=== PATIENT | female | born 1935 | race Caucasian/White ===

== ENCOUNTER 2017-10-10 19:59 | Inpatient (IN) | payer MEDICARE ==
[2017-10-10] MEDS ORDERED: Sodium Chloride 0.9% 1,000 ML IV ONE (20:19)
[2017-10-10 20:36] LABS: MEAN PLATELET VOLUME 8.5 fl
[2017-10-10 20:39] LABS: HEMATOCRIT 40.8 % (41.0-60); HEMOGLOBIN 13.6 gm/dL (12-16); MANUAL DIFF REQUIRED? YES; MEAN CELL VOLUME 93.4 fl (81-100); MEAN CORPUSCULAR HEMOGLOBIN 31.1 pg (27.0-31.0); MEAN CORPUSCULAR HGB CONC 33.3 pg (28.0-36.0); MONOCYTE ABSOLUTE 0.7 Th/cmm (0.3-1.0); NEUTROPHILE ABSOLUTE 13.7 Th/cmm (1.8-8.0); PLATELET COUNT 319 Th/cmm (150-400); RED BLOOD COUNT 4.37 Mil/cmm (3.80-5.20); RED CELL DISTRIBUTION WIDTH 13.2 % (11.5-20.0)
[2017-10-10 20:41] LABS: WHITE BLOOD COUNT 15.2 Th/cmm (4.8-10.8)
[2017-10-10 20:49] LABS: URINE MICROSCOPIC INDICATED? YES; URINE SOURCE CATH
[2017-10-10 20:50] LABS: URINE BILIRUBIN SMALL (NEGATIVE); URINE BLOOD MODERATE (NEGATIVE); URINE GLUCOSE (UA) NEGATIVE (NEGATIVE); URINE KETONE NEGATIVE (NEGATIVE); URINE LEUKOCYTE ESTERASE NEGATIVE (NEGATIVE); URINE NITRATE POSITIVE (NEGATIVE); URINE PROTEIN 100 mg/dL (NEGATIVE)
[2017-10-10 20:55] LABS: URINE CLARITY CLOUDY (CLEAR); URINE COLOR YELLOW
[2017-10-10 20:58] LABS: ALB/GLOB RATIO 1.1 (1.0-1.8); ALBUMIN 3.7 gm/dL (3.7-5.3); ALKALINE PHOSPHATASE 84 U/L (34-104); ANION GAP 12.4 (7.0-16.0); BILIRUBIN,TOTAL 0.6 mg/dL (0.3-1.0); BUN - UREA NITROGEN 25 mg/dL (7-25); CALCIUM SERUM 9.8 mg/dL (8.6-10.3); CHLORIDE 107 mEq/L (98-107); CREATININE - SERUM 0.8 mg/dL (0.6-1.2); GLUCOSE 183 mg/dL (70-105); POTASSIUM SERUM 3.4 mEq/L (3.5-5.1); SGOT 15 U/L (13-39); SGPT/ALT 7 U/L (7-52); SODIUM SERUM 143 mEq/L (136-145); TOTAL PROTEIN,SERUM 7.1 gm/dL (6.0-8.3)
[2017-10-10 20:58] LABS: URINE BACTERIA MANY /hpf (NONE SEEN); URINE EPITHELIAL CELLS MODERATE /lpf (FEW); URINE RBC 25-50 /hpf (0-5)
[2017-10-10 21:10] LABS: BAND NEUTROPHILE 5 % (0-10); LYMPHOCYTE 10 % (20-50); MONOCYTE 2 % (2-10); NEUTROPHILS 83 % (40-80); TOTAL CELLS COUNTED 100
[2017-10-10] MEDS ORDERED: cefTRIAXone 1 GM in Sodium Chloride 0.9% 50 ML IV ONE (21:10)
--- NOTE | 2017-10-10 21:35 | ED Physician Chart ---
ED Chief Complaint/HPI - Patient Information Date Seen:: 10/10/17 Time Seen:: 20:30 Chief Complaint:: Generalized weakness History of Present Illness:: 82 yo female was brought from [facility] to ER for evaluation of poor oral intake for 1 day. Patient is demented and confused. Allergies:: Allergies Allergy/AdvReac Type Severity Reaction Status Date / Time Penicillins [PCN] Allergy Verified 10/10/17 20:10 Vitals:: Vital Signs - 8 hr 10/10/17 10/10/17 20:00 21:11 Temp 98.8 F HR 110 82 RR 18 16 BP 96/75 103/66 O2 Sat % 94 94 ED Review of Systems - Review of Systems General/Constitutional: No fever, Weakness Skin: No skin lesions Head: No headache Eyes: No pain ENT: No nasal drainage Neck: No neck pain Cardio Vascular: No chest pain Pulmonary: No SOB GI: No nausea, No vomiting Musculoskeletal: No bone or joint pain Psychiatric: Prior psych history Neurological: No focal symptoms ED Past Medical History - Past Medical History Past Medical History: Dementia (Alzheimer's) Social History: Non Smoker, No Alcohol, No Drug Use Surgical History: None Psychiatricy History: Other (Anxiety) Family Medical History - Family Member Mother History Unknown: Yes ED Physical Exam - Physical Examination General/Constitutional: Awake Head: Atraumatic Eyes: PERRL Skin: No skin lesions ENMT: Nasal exam nl Neck: No nuchal rigidity Respiratory: No Wheeze/Rhonchi/Rales Cardio Vascular: RRR, No murmur, gallop, rubs, NL S1 S2 GI: No tenderness/rebounding/guarding Extremities: No edema Other Neuro/Psych comments:: Confused, not following command ED Labs/Radiology/EKG Results - Lab Results Results: Laboratory Tests 10/10/17 10/10/17 10/10/17 20:15 20:15 20:15 WBC 15.2 H RBC 4.37 Hgb 13.6 Hct 40.8 L MCV 93.4 MCH 31.1 H MCHC Differential 33.3 RDW 13.2 Plt Count 319 MPV 8.5 Band Neutrophils % 5 Neutrophils (Manual) 83 H Lymphocytes 10 L Monocytes 2 Sodium 143 Potassium 3.4 L Chloride 107 Carbon Dioxide 27.0 Anion Gap 12.4 BUN 25 Creatinine 0.8 Est GFR ( Amer) TNP Est GFR (Non-Af Amer) TNP BUN/Creatinine Ratio 31.3 Glucose 183 H Calcium 9.8 Total Bilirubin 0.6 AST 15 ALT 7 Alkaline Phosphatase 84 Troponin I < 0.01 L Total Protein 7.1 Albumin 3.7 Globulin 3.4 Albumin/Globulin Ratio 1.1 Urine Source Urine Color Urine Clarity Urine pH Ur Specific [place] Urine Protein Urine Glucose (UA) Urine Ketones Urine Blood Urine Nitrate Urine Bilirubin Urine Urobilinogen Ur Leukocyte Esterase Urine RBC Urine WBC Ur Epithelial Cells Urine Bacteria 10/10/17 20:45 WBC RBC Hgb Hct MCV MCH MCHC Differential RDW Plt Count MPV Band Neutrophils % Neutrophils (Manual) Lymphocytes Monocytes Sodium Potassium Chloride Carbon Dioxide Anion Gap BUN Creatinine Est GFR ( Amer) Est GFR (Non-Af Amer) BUN/Creatinine Ratio Glucose Calcium Total Bilirubin AST ALT Alkaline Phosphatase Troponin I Total Protein Albumin Globulin Albumin/Globulin Ratio Urine Source CATH Urine Color YELLOW Urine Clarity CLOUDY H Urine pH 6.0 Ur Specific [place] >= 1.030 Urine Protein 100 H Urine Glucose (UA) NEGATIVE Urine Ketones NEGATIVE Urine Blood MODERATE H Urine Nitrate POSITIVE H Urine Bilirubin SMALL H Urine Urobilinogen 2.0 Ur Leukocyte Esterase NEGATIVE Urine RBC 25-50 H Urine WBC 2-5 Ur Epithelial Cells MODERATE Urine Bacteria MANY H - Radiology Results Results: CXR: no focal consolidation - EKG Interpretations EKG Time:: 20:46 Rate & Rhythm: 94 bpm, sinus rhythm [place]: Normal P axis Comments:: Abnormal R-wave progression, abnormal EKG ED Assessment - Assessment General Assessment: Sepsis UTI Dehydration Alzheimer's dementia Assessment/Comments:: CBC, CMP, Trop I, BNP, UA CXR, EKG NS 1L IV bolus Rocephin KCl 40mEq Admit to med surg ED Septic Shock - . Is Septic Shock (SBP<90, OR Lactate>4 mmol\L) present?: No - <6hrs of presentation: Vital Signs: Vital Signs - 8 hr 10/10/17 10/10/17 20:00 21:11 Temp 98.8 F HR 110 82 RR 18 16 BP 96/75 103/66 O2 Sat % 94 94 ED Reassessment (Disposition) - Reassessment Reassessment Condition:: Improved - Patient Disposition Discharge/Transfer:: Acute Care w/in this hosp Admitting Medical Physician:: Richie Jorge
[2017-10-10] MEDS ORDERED: Potassium Chloride 20 mEq ER Tab PO ONE ×2 (21:50→21:52)
[2017-10-11] MEDS: D5-0.45NS 1,000 ML IV SCH ×2 (01:07→14:11)
[2017-10-11 06:05] LABS: % BASOPHILS 0.1 % (0.0-2.0); % EOSINOPHILS 0.2 % (0.0-5.0); % LYMPHOCYTES 7.3 % (20.0-50.0); % MONOCYTES 6.9 % (2.0-10.0); % NEUTROPHILS 85.5 % (40.0-80.0); HEMOGLOBIN 11.3 gm/dL (12-16); LYMPHOCYTE ABSOLUTE 0.9 Th/cmm (1.5-3.0); MEAN CELL VOLUME 93.2 fl (81-100); MEAN CORPUSCULAR HEMOGLOBIN 31.5 pg (27.0-31.0); MEAN CORPUSCULAR HGB CONC 33.8 pg (28.0-36.0); MEAN PLATELET VOLUME 8.3 fl; MONOCYTE ABSOLUTE 0.9 Th/cmm (0.3-1.0); NEUTROPHILE ABSOLUTE 10.6 Th/cmm (1.8-8.0); PLATELET COUNT 278 Th/cmm (150-400); RED CELL DISTRIBUTION WIDTH 12.8 % (11.5-20.0)
[2017-10-11 06:25] LABS: HEMATOCRIT 33.6 % (41.0-60); WHITE BLOOD COUNT 12.4 Th/cmm (4.8-10.8)
[2017-10-11 06:45] LABS: ALB/GLOB RATIO 1.1 (1.0-1.8); ALBUMIN 3.1 gm/dL (3.7-5.3); ALKALINE PHOSPHATASE 73 U/L (34-104); ANION GAP 9.1 (7.0-16.0); BILIRUBIN,TOTAL 0.4 mg/dL (0.3-1.0); BUN - UREA NITROGEN 19 mg/dL (7-25); CALCIUM SERUM 8.8 mg/dL (8.6-10.3); CARBON DIOXIDE 25.4 mEq/L (21.0-31.0); CHLORIDE 113 mEq/L (98-107); CREATININE - SERUM 0.8 mg/dL (0.6-1.2); GLUCOSE 181 mg/dL (70-105); POTASSIUM SERUM 3.5 mEq/L (3.5-5.1); SGOT 14 U/L (13-39); SGPT/ALT 7 U/L (7-52); SODIUM SERUM 144 mEq/L (136-145); TOTAL PROTEIN,SERUM 5.9 gm/dL (6.0-8.3)
--- NOTE | 2017-10-11 10:10 | Consultation ---
Consult Note - Consult Note Service Date: 10/11/17 Referring Physician: Richie Jorge Consult Note: PHYSICIAN Consultation Note: Date of Admission: 10/10/17 Purpose of Consultation: Chief Complaint: Patient SHALOM LAW was admitted to location Medical/Surgical Unit I with UTI ,SEPSIS. History of Present Illness:82 year female with a past medical history of severe dementia, anxiety disorder brought from nursing facility for evaluation. Patient has generalized weakness. She is well poor historian and unable to give any history at all. On initial evaluation, patient's temperature was 98.8 F and WBC count was 13,200. Urinalysis showed a hematuria and bacteriuria. Rocephin was started. ID consult was called for antibiotic management. Past Medical History: Allergies Allergy/AdvReac Type Severity Reaction Status Date / Time Penicillins [PCN] Allergy Verified 10/10/17 20:10 Vital Signs Temp 98.3 F 10/11/17 07:46 Pulse 68 10/11/17 07:46 Resp 17 10/11/17 08:19 BP 99/45 10/11/17 07:46 Pulse Ox 91 10/11/17 07:46 Intake & Output 10/10/17 10/11/17 10/11/17 18:59 06:59 18:59 Intake Total 2100 Output Total 50 Balance 2049 Weight (lbs) 47.627 kg Intake: Intake, IV Amount 2100 Sodium Chloride 0.9% 1, 1000 000 ml @ Wide Open IV . Q0M ONE Rx#:[id number] cefTRIAXone 1 gm In 50 Sodium Chloride 0.9% 50 ml @ 100 mls/hr IV X1 ONE Rx#:[id number] Output: Urine 50 Other: Weight Source Estimated Laboratory Results - last 24 hr 10/10/17 10/10/17 10/10/17 20:15 20:15 20:15 WBC 15.2 H RBC 4.37 Hgb 13.6 Hct 40.8 L MCV 93.4 MCH 31.1 H MCHC Differential 33.3 RDW 13.2 Plt Count 319 MPV 8.5 Neutrophils % Band Neutrophils % 5 Lymphocytes % Monocytes % Eosinophils % Basophils % Neutrophils (Manual) 83 H Lymphocytes 10 L Monocytes 2 Sodium 143 Potassium 3.4 L Chloride 107 Carbon Dioxide 27.0 Anion Gap 12.4 BUN 25 Creatinine 0.8 Est GFR ( Amer) TNP Est GFR (Non-Af Amer) TNP BUN/Creatinine Ratio 31.3 Glucose 183 H Whole Bld Lactic Acid Calcium 9.8 Total Bilirubin 0.6 AST 15 ALT 7 Alkaline Phosphatase 84 Troponin I < 0.01 L B-Natriuretic Peptide Total Protein 7.1 Albumin 3.7 Globulin 3.4 Albumin/Globulin Ratio 1.1 Urine Source Urine Color Urine Clarity Urine pH Ur Specific [place] Urine Protein Urine Glucose (UA) Urine Ketones Urine Blood Urine Nitrate Urine Bilirubin Urine Urobilinogen Ur Leukocyte Esterase Urine RBC Urine WBC Ur Epithelial Cells Urine Bacteria 10/10/17 10/10/17 10/10/17 20:15 20:45 21:10 WBC RBC Hgb Hct MCV MCH MCHC Differential RDW Plt Count MPV Neutrophils % Band Neutrophils % Lymphocytes % Monocytes % Eosinophils % Basophils % Neutrophils (Manual) Lymphocytes Monocytes Sodium Potassium Chloride Carbon Dioxide Anion Gap BUN Creatinine Est GFR ( Amer) Est GFR (Non-Af Amer) BUN/Creatinine Ratio Glucose Whole Bld Lactic Acid 1.95 Calcium Total Bilirubin AST ALT Alkaline Phosphatase Troponin I B-Natriuretic Peptide 56.4 Total Protein Albumin Globulin Albumin/Globulin Ratio Urine Source CATH Urine Color YELLOW Urine Clarity CLOUDY H Urine pH 6.0 Ur Specific [place] >= 1.030 Urine Protein 100 H Urine Glucose (UA) NEGATIVE Urine Ketones NEGATIVE Urine Blood MODERATE H Urine Nitrate POSITIVE H Urine Bilirubin SMALL H Urine Urobilinogen 2.0 Ur Leukocyte Esterase NEGATIVE Urine RBC 25-50 H Urine WBC 2-5 Ur Epithelial Cells MODERATE Urine Bacteria MANY H 10/11/17 10/11/17 05:05 05:05 WBC 12.4 H RBC 3.60 L Hgb 11.3 L Hct 33.6 L D MCV 93.2 MCH 31.5 H MCHC Differential 33.8 RDW 12.8 Plt Count 278 MPV 8.3 Neutrophils % 85.5 H Band Neutrophils % Lymphocytes % 7.3 L Monocytes % 6.9 Eosinophils % 0.2 Basophils % 0.1 Neutrophils (Manual) Lymphocytes Monocytes Sodium 144 Potassium 3.5 Chloride 113 H Carbon Dioxide 25.4 Anion Gap 9.1 BUN 19 Creatinine 0.8 Est GFR ( Amer) TNP Est GFR (Non-Af Amer) TNP BUN/Creatinine Ratio 23.8 Glucose 181 H Whole Bld Lactic Acid Calcium 8.8 Total Bilirubin 0.4 AST 14 ALT 7 Alkaline Phosphatase 73 Troponin I B-Natriuretic Peptide Total Protein 5.9 L Albumin 3.1 L Globulin 2.8 Albumin/Globulin Ratio 1.1 Urine Source Urine Color Urine Clarity Urine pH Ur Specific [place] Urine Protein Urine Glucose (UA) Urine Ketones Urine Blood Urine Nitrate Urine Bilirubin Urine Urobilinogen Ur Leukocyte Esterase Urine RBC Urine WBC Ur Epithelial Cells Urine Bacteria Home Medication Medication Instructions Recorded Type Acetaminophen [Tylenol] 650 mg PO Q4HR PRN 10/10/17 History Ascorbic Acid [Vitamin C] 500 mg PO DAILY 10/10/17 History Donepezil HCl [Aricept] 10 mg PO HS 10/10/17 History Memantine HCl [Namenda Xr] 28 mg PO DAILY 10/10/17 History Multivitamin with Minerals 1 tab PO DAILY 10/10/17 History [Multivitamins with Minerals] Current Medications Generic Name Dose Route Start Last Admin Trade Name Freq PRN Reason Stop Dose Admin Ceftriaxone Sodium 1 gm/ 50 mls @ 100 mls/hr 10/11/17 21:00 Sodium Chloride IV 12/10/17 20:59 Q24HR RADHA Dextrose/Sodium Chloride 1,000 mls @ 75 mls/hr 10/10/17 23:00 10/11/17 01:07 D5-0.45ns IV 12/09/17 22:59 75 mls/hr .[id number] RADHA Administration Review of Systems: A 12 point ROS was reviewed with the pertinent positive and negatives noted in the HPI. Social History Smoking Status Unknown if ever smoked Family Medical History Not available. Physical Exam: General: Comfortable not in acute distress head is normocephalic, atraumatic. Oral cavity: Moist for greater HEENT: Head: Normocephalic. Atraumatic. Oral cavity: Moist, pink tongue. Eyes : Pallor and icterus. Pupil PERRLA EOMI. Neck: Upper, no JVD. No use of accessory muscles. Cardio: 1 S2 within normal with regular rhythm no murmur or gallop Respiratory: Patient was sound no crackles no wheezing. Abdominal: Soft, nontender nondistended bowel sounds present Genital/Urinary: No sinus no clubbing no edema Extremities: No sinus no clubbing no edema. Neurological: Alert. Unable to communicate. Assessment: 1. Leukocytosis. 2. UTI. 3. Severe dementia Plan: Renal ul Dr. GREENBERG, for involving me taking care of this patient trasound. Continue Rocephin. Thank you, Dr. Jorge, for involving me in taking care of this patient Signed, Timmy Gleason M.D. [id number]
--- NOTE | 2017-10-11 10:36 | Diagnostic Imaging Report ---
Portable chest x-ray HISTORY: Cough Heart size difficult to assess with portable technique, a poor inspiration, and patient rotation. Scoliosis of the thoracic spine convexity to the right. No focal pulmonary processes. IMPRESSION: 1. No acute focal pulmonary processes
--- NOTE | 2017-10-11 11:27 | History & Physical ---
ADMIT DATE: PATIENT IDENTIFICATION: An 82-year-old. CHIEF COMPLAINT: None. HISTORY SOURCE: Reviewing the chart, talking to the Emergency Room MD. HISTORY OF PRESENT ILLNESS: An 82-year-old resident of a senior living, has advanced Alzheimer dementia with history of anxiety and depression, brought into the Emergency Room after the patient was noted to have poor p.o. intake and decreased urine output. The patient was worked up in the Emergency Room, noted to have a urinary tract infection associated with leukocytosis. The patient was admitted to the hospital for further treatment. PAST MEDICAL HISTORY: Remarkable for: 1. Alzheimer dementia. 2. DJD. 3. Osteoporosis. ALLERGIES: THE PATIENT IS ALLERGIC TO PENICILLIN. SOCIAL HISTORY: The patient lives in a senior living. No smoking cigarette, alcohol, or drug use. FAMILY HISTORY: Unavailable. REVIEW OF SYSTEMS: Unable to get meaningful history from the patient. PHYSICAL EXAMINATION: GENERAL: The patient is alert, awake, does not follow any command. VITAL SIGNS: Temperature 98.3, pulse 68, respiratory rate 18, blood pressure 100/45. HEENT: Normocephalic, atraumatic. Extraocular muscles are intact. Tongue was pink and dry. Multiple absent teeth noted. NECK: Supple. No JVD. No hepatojugular reflux, thyromegaly, or carotid bruit. HEART: Both heart sounds are regular. CHEST AND LUNGS: Equal in expansion with no expiratory wheezing. ABDOMEN: Soft. No guarding, no rigidity. Bowel sounds are present. No palpable mass. EXTREMITIES: No edema, no cyanosis. Bilateral footdrop noted with wristdrop ____ +1. No calf tenderness. NEUROLOGIC: Alert, awake, unable to communicate. AVAILABLE LABORATORY DATA: Remarkable for white count of 15.2, hemoglobin 13.6, platelet count 319, 83% neutrophil, potassium 3.4, BUN and creatinine 25 and 0.8, glucose of 183. Liver functions are normal. Troponin less than 0.01. Cloudy appearing urine, 100+ protein, moderate blood, positive nitrite, small bilirubin, 25-50 wbc's, many bacteria were noted. Chest x-ray was done, which was unremarkable for any infiltrate. CLINICAL IMPRESSION: 1. Complicated urinary tract infections with leukocytosis. 2. Alzheimer dementia. 3. Degenerative joint disease. 4. Osteoporosis. 5. Poor p.o. intake. PLAN: 1. Admit this patient to [facility] floor. 2. IV fluid. 3. IV antibiotics. 4. Normal ultrasound. 5. Infectious Disease consultation. 6. General nursing care. 7. Appropriate home medicine reconciliation. 8. Follow lab. 9. Follow consult recommendation. 10. Care plan reviewed and discussed. JOB# [id number]
[2017-10-11] MEDS ORDERED: VTE Chemical Prophylaxis Screen/Admission MC PRN (11:58)
[2017-10-11] MEDS ORDERED: Probiotic Screen MC PRN (12:07)
[2017-10-11] MEDS: Multivitamin w/ Minerals Tab PO SCH (13:10)
[2017-10-11] MEDS: Lactobacillus Rhamnosus GG 15 Billion CFU CAP.SPRINK PO SCH (13:10)
--- NOTE | 2017-10-11 14:19 | Diagnostic Imaging Report ---
Renal ultrasound HISTORY: Pain, pyelonephritis The right kidney is somewhat increased in size (13.0 x 5.1 x 4.9 cm). 2 sonolucent lesions consistent with cysts are seen in the upper pole. The largest measures approximate 4.7 cm. No hydronephrosis. The left kidney is slightly decreased in size (8.0 x 4.0 x 3.9 cm). No focal lesions. No hydronephrosis. The urinary bladder cannot be evaluated due to lack of distention and presence of a Ly catheter. IMPRESSION: 1. Slightly increased size of the right kidney associated with 2 cysts. No hydronephrosis. 2. Slightly diminished size the left kidney. No focal lesions or hydronephrosis.
[2017-10-11 17:49] LABS: A1C % 5.6 % (4.0-6.0)
[2017-10-11] MEDS ORDERED: cefTRIAXone 1 GM in Sodium Chloride 0.9% 50 ML IV SCH (21:00)
[2017-10-12 07:17] LABS: % BASOPHILS 0.4 % (0.0-2.0); % EOSINOPHILS 0.6 % (0.0-5.0); % LYMPHOCYTES 10.2 % (20.0-50.0); % MONOCYTES 6.9 % (2.0-10.0); % NEUTROPHILS 81.9 % (40.0-80.0); EOSINOPHILE ABSOLUTE 0.1 Th/cmm (0.1-0.4); HEMATOCRIT 31.8 % (41.0-60); HEMOGLOBIN 11.1 gm/dL (12-16); LYMPHOCYTE ABSOLUTE 1.1 Th/cmm (1.5-3.0); MEAN CORPUSCULAR HEMOGLOBIN 32.1 pg (27.0-31.0); MEAN CORPUSCULAR HGB CONC 34.9 pg (28.0-36.0); MEAN PLATELET VOLUME 8.7 fl; MONOCYTE ABSOLUTE 0.8 Th/cmm (0.3-1.0); NEUTROPHILE ABSOLUTE 9.1 Th/cmm (1.8-8.0); PLATELET COUNT 268 Th/cmm (150-400); RED BLOOD COUNT 3.45 Mil/cmm (3.80-5.20); RED CELL DISTRIBUTION WIDTH 12.6 % (11.5-20.0); WHITE BLOOD COUNT 11.1 Th/cmm (4.8-10.8)
[2017-10-12 07:33] LABS: ALB/GLOB RATIO 1.1 (1.0-1.8); ALKALINE PHOSPHATASE 68 U/L (34-104); ANION GAP 10.2 (7.0-16.0); BILIRUBIN,TOTAL 0.5 mg/dL (0.3-1.0); BUN - UREA NITROGEN 8 mg/dL (7-25); CALCIUM SERUM 8.4 mg/dL (8.6-10.3); CARBON DIOXIDE 26.9 mEq/L (21.0-31.0); CHLORIDE 107 mEq/L (98-107); CREATININE - SERUM 0.7 mg/dL (0.6-1.2); GLUCOSE 115 mg/dL (70-105); MAGNESIUM 1.9 mg/dL (1.9-2.7); POTASSIUM SERUM 3.1 mEq/L (3.5-5.1); SGOT 13 U/L (13-39); SGPT/ALT 6 U/L (7-52); SODIUM SERUM 141 mEq/L (136-145); TOTAL PROTEIN,SERUM 5.8 gm/dL (6.0-8.3)
[2017-10-12] MEDS: Lactobacillus Rhamnosus GG 15 Billion CFU CAP.SPRINK PO SCH (09:57)
[2017-10-12] MEDS: Multivitamin w/ Minerals Tab PO SCH (09:57)
--- NOTE | 2017-10-12 12:16 | Diagnostic Imaging Report ---
CHEST X-RAY: AP view INDICATION: Cough COMPARISON: 10/10/2017 FINDINGS: Developing right basal infiltrate is noted with small right effusion. Heart size is at the upper limits of normal. Gas distended stomach is noted. IMPRESSION: Developing right basal infiltrate with small right effusion. Follow up recommended.
[2017-10-12] MEDS ORDERED: KCL 20mEq/100mL Premix 20 MEQ/100 ML PIGGYBACK IV ONE (18:34)
[2017-10-12] MEDS: D5-0.45NS 1,000 ML IV SCH (19:42)
--- NOTE | 2017-10-13 01:21 | Infectious Disease Prog Note ---
Infectious Disease Subjective - Review of Systems Service Date: 10/12/17 Subjective: No change, no fever. Infectious Disease Objective - Results Result Diagrams: 10/12/17 05:35 10/12/17 05:35 Recent Labs: Laboratory Last Values WBC 11.1 Th/cmm (4.8-10.8) H 10/12/17 05:35 RBC 3.45 Mil/cmm (3.80-5.20) L 10/12/17 05:35 Hgb 11.1 gm/dL (12-16) L 10/12/17 05:35 Hct 31.8 % (41.0-60) L 10/12/17 05:35 MCV 92.0 fl (81-100) 10/12/17 05:35 MCH 32.1 pg (27.0-31.0) H 10/12/17 05:35 MCHC Differential 34.9 pg (28.0-36.0) 10/12/17 05:35 RDW 12.6 % (11.5-20.0) 10/12/17 05:35 Plt Count 268 Th/cmm (150-400) 10/12/17 05:35 MPV 8.7 fl 10/12/17 05:35 Neutrophils % 81.9 % (40.0-80.0) H 10/12/17 05:35 Band Neutrophils % 5 % (0-10) 10/10/17 20:15 Lymphocytes % 10.2 % (20.0-50.0) L 10/12/17 05:35 Monocytes % 6.9 % (2.0-10.0) 10/12/17 05:35 Eosinophils % 0.6 % (0.0-5.0) 10/12/17 05:35 Basophils % 0.4 % (0.0-2.0) 10/12/17 05:35 Neutrophils (Manual) 83 % (40-80) H 10/10/17 20:15 Lymphocytes 10 % (20-50) L 10/10/17 20:15 Monocytes 2 % (2-10) 10/10/17 20:15 Sodium 141 mEq/L (136-145) 10/12/17 05:35 Potassium 3.1 mEq/L (3.5-5.1) L 10/12/17 05:35 Chloride 107 mEq/L (98-107) 10/12/17 05:35 Carbon Dioxide 26.9 mEq/L (21.0-31.0) 10/12/17 05:35 Anion Gap 10.2 (7.0-16.0) 10/12/17 05:35 BUN 8 mg/dL (7-25) 10/12/17 05:35 Creatinine 0.7 mg/dL (0.6-1.2) 10/12/17 05:35 Est GFR ( Amer) TNP 10/12/17 05:35 Est GFR (Non-Af Amer) TNP 10/12/17 05:35 BUN/Creatinine Ratio 11.4 10/12/17 05:35 Glucose 115 mg/dL (70-105) H 10/12/17 05:35 Hemoglobin A1c % 5.6 % (4.0-6.0) 10/10/17 20:20 Whole Bld Lactic Acid 1.95 mmol/L (0.60-1.99) 10/10/17 21:10 Calcium 8.4 mg/dL (8.6-10.3) L 10/12/17 05:35 Magnesium 1.9 mg/dL (1.9-2.7) 10/12/17 05:35 Total Bilirubin 0.5 mg/dL (0.3-1.0) 10/12/17 05:35 AST 13 U/L (13-39) 10/12/17 05:35 ALT 6 U/L (7-52) L 10/12/17 05:35 Alkaline Phosphatase 68 U/L (34-104) 10/12/17 05:35 Troponin I < 0.01 ng/mL (0.01-0.05) L 10/10/17 20:15 B-Natriuretic Peptide 56.4 pg/mL (5.0-100.0) 10/10/17 20:15 Total Protein 5.8 gm/dL (6.0-8.3) L 10/12/17 05:35 Albumin 3.0 gm/dL (3.7-5.3) L 10/12/17 05:35 Globulin 2.8 gm/dL 10/12/17 05:35 Albumin/Globulin Ratio 1.1 (1.0-1.8) 10/12/17 05:35 Urine Source CATH 10/10/17 20:45 Urine Color YELLOW 10/10/17 20:45 Urine Clarity CLOUDY (CLEAR) H 10/10/17 20:45 Urine pH 6.0 (4.6 - 8.0) 10/10/17 20:45 Ur Specific [place] >= 1.030 (1.005-1.030) 10/10/17 20:45 Urine Protein 100 mg/dL (NEGATIVE) H 10/10/17 20:45 Urine Glucose (UA) NEGATIVE mg/dL (NEGATIVE) 10/10/17 20:45 Urine Ketones NEGATIVE mg/dL (NEGATIVE) 10/10/17 20:45 Urine Blood MODERATE (NEGATIVE) H 10/10/17 20:45 Urine Nitrate POSITIVE (NEGATIVE) H 10/10/17 20:45 Urine Bilirubin SMALL (NEGATIVE) H 10/10/17 20:45 Urine Urobilinogen 2.0 E.U./dL (0.2 - 1.0) 10/10/17 20:45 Ur Leukocyte Esterase NEGATIVE (NEGATIVE) 10/10/17 20:45 Urine RBC 25-50 /hpf (0-5) H 10/10/17 20:45 Urine WBC 2-5 /hpf (0-5) 10/10/17 20:45 Ur Epithelial Cells MODERATE /lpf (FEW) 10/10/17 20:45 Urine Bacteria MANY /hpf (NONE SEEN) H 10/10/17 20:45 - Physical Exam Vitals and I&O: Vital Signs Temp 97.2 F 10/13/17 00:00 Pulse 50 10/13/17 00:00 Resp 18 10/13/17 00:00 BP 137/57 10/13/17 00:00 Pulse Ox 92 10/13/17 00:00 Intake & Output 10/12/17 10/12/17 10/13/17 06:59 18:59 06:59 Intake Total 1000 0 Output Total 201 500 Balance 799 -500 Weight (lbs) 52.027 kg 51.71 kg Intake: Intake, IV Amount 1000 D5-0.45NS 1,000 ml @ 75 1000 mls/hr IV .[id number] [facility] Rx #:[id number] Oral 0 Output: Urine 200 500 Stool 1 Other: # Bowel Movements 2 Weight Source Bedscale Bedscale Active Medications: Current Medications Acetaminophen (Tylenol) 650 mg PO Q4H PRN PRN Reason: Pain or Fever >101 Stop: 12/10/17 10:37 Ascorbic Acid (Vitamin C) 500 mg PO DAILY RADHA Stop: 12/10/17 13:59 Last Admin: 10/12/17 09:57 Dose: 500 mg Donepezil HCl (Aricept) 10 mg PO HS RADHA Stop: 12/10/17 20:59 Last Admin: 10/12/17 22:22 Dose: Not Given Heparin Sodium (Porcine) (Heparin) 5,000 units SUBQ Q12HR RADHA Stop: 12/10/17 20:59 Last Admin: 10/12/17 21:31 Dose: 5,000 units Dextrose/Sodium Chloride (D5-0.45ns) 1,000 mls @ 75 mls/hr IV .[id number] RADHA Stop: 12/09/17 22:59 Last Admin: 10/12/17 19:42 Dose: 75 mls/hr Gentamicin Sulfate 80 mg/ (Sodium Chloride) 102 mls @ 100 mls/hr IV Q24HR@0900 RADHA Stop: 12/10/17 13:59 Last Admin: 10/12/17 09:56 Dose: 100 mls/hr Ceftriaxone Sodium 1 gm/ (Dextrose) 50 mls @ 100 mls/hr IV Q24H RADHA Stop: 12/11/17 20:59 Last Admin: 10/12/17 21:31 Dose: 100 mls/hr Lactobacillus Rhamnosus (Culturelle 15b) 1 each PO DAILY RADHA Stop: 12/10/17 13:59 Last Admin: 10/12/17 09:57 Dose: 1 each Memantine (Namenda) 10 mg PO DAILY RADHA Stop: 12/10/17 13:59 Last Admin: 10/12/17 09:57 Dose: 10 mg Miscellaneous (Gentamicin Iv Per Pharmacy) 1 ea MC PRN RADHA Stop: 12/10/17 10:44 Miscellaneous (Vte Chemical Prophylaxis Screen/ Admission) 1 ea PRN PRN PRN Reason: PROTOCOL Stop: 12/10/17 11:57 Miscellaneous (Probiotic Screen) 1 ea PRN PRN PRN Reason: PROTOCOL Stop: 12/10/17 12:06 General: no acute distress, well developed, well nourished HEENT: atraumatic, normocephalic, PERRLA, EOMI Neck: supple, no thyromegaly, no lymphadenopathy Cardiovascular: S1S2, regular Lungs: clear to auscultation bilaterally, clear to percussion Abdomen: soft, bowel sounds, no tender, no distended Extremities: no cyanosis, no clubbing, no edema Neurological: awake, alert, oriented Skin: intact Infectious Disease Assmt/Plan - Assessment Assessment: 1. Leukocytosis. 2. UTI. 3. Severe dementia - Plan Plan: CPM. Nutritional Asmnt/Malnutr-PDOC - Dietary Evaluation Malnutrition Findings (Please click <Entered> for more info): Nutritional Asmnt/Malnutrition Start: 10/11/17 13: 56 Text: Status: Complete Freq: Protocol: Document 10/11/17 13:56 SWETHA (Rec: 10/11/17 14:14 [email or web address] [id number]) Nutritional Asmnt/Malnutrition Patient General Information Nutritional Screening High Risk Diagnosis UTi, Sepsis Pertinent Medical Hx/Surgical Hx dementia, anxiety Subjective Information Pt seen sleeping at first attempt of visit, taking ultrasaound at second attempt of visit. Spoke with CREDIT ADVISOR, pt had half of cream of wheat and healthy shake at breakfast, refused to eat at lunch. Current Diet Order/ Nutrition Support pureed, honey thickened liquids Pertinent Medications vit C, D5-045ns, culturelle Pertinent Labs 10/11 cl 113, glucose 181 6/5 K 3.4, glucose 183 Nutritional Hx/Data Height 1.52 m Height (Calculated Centimeters) 152.4 Current Weight (lbs) 47.627 kg Weight (Calculated Kilograms) 47.6 Weight (Calculated Grams) 55710.2 [place] Body Weight 100 % [place] Body Weight 105 Body Mass Index (BMI) 20.5 Weight Status Approriate GI Symptoms GI Symptoms None Last BM not indicated Difficult in: None Usual diet at home poor PO intake x 1 day before admitted Skin Integrity/Comment: 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 Problem Problem altered nutrition related labs Etiology endocrine dysfunction Signs/Symptoms: glucose 181-183 1. Problem Problem inadequate food intake Etiology possible poor appetite or mental status Signs/Symptoms: PO intake <25% Malnutrition Alert Is there a minimum of two criteria No selected? Query Text:Check all the applicable criteria. A minimum of two criteria are recommended for diagnosis of either severe or non-severe malnutrition. Malnutrition Related to Morbid Obesity Malnutrition related to morbid obesity No Intervention/Recommendation Comments 1. Continue with current diet as ordered. Encourage pt to eat and assist pt with all meals. MD to consider appetite stimulant. 2. Monitor glucose, PO intake. Consider adding supplements if PO continue <25% for 3 days . 3. Monitor PO intake, wt, labs and skin integrity 4. F/U as high risk in 2-3 days, 10/13-10/14 Expected Outcomes/Goals Expected Outcomes/Goals 1. PO intake to meet at least 75% of nutritional needs. 2. Wt stability, skin to remain intact, labs to approach WNL.
--- NOTE | 2017-10-13 03:40 | Consultation ---
DATE OF CONSULTATION: 10/12/2017 REASON FOR CONSULTATION: Failure to thrive, not eating. HISTORY OF PRESENT ILLNESS: This consult was obtained through the request of Dr. Jorge for this 82-year-old with history of dementia, degenerative joint disease, osteoarthritis, osteoporosis, living in a halfway, admitted to the hospital for decreased oral intake, decreased urine output, becoming dehydrated. The patient has not been eating, refusing to cooperate even with swallowing studies. GI consult was called in for further evaluation. PAST MEDICAL HISTORY: Osteoporosis, degenerative joint disease, dementia. PAST SURGICAL HISTORY: Not known. SOCIAL HISTORY: Nonsmoker, nonalcoholic, non-IV drug abuser. FAMILY HISTORY: Noncontributory. ALLERGIES: PENICILLIN. REVIEW OF SYSTEMS: Unobtainable. MEDICATIONS: The patient is on Tylenol, vitamin C, Rocephin, Aricept, gentamicin, Culturelle, Namenda. PHYSICAL EXAMINATION: GENERAL: The patient is awake, nonverbal. VITAL SIGNS: Blood pressure is 90/45, heart rate 76, respiratory rate 16, temperature is 98.4. HEAD AND NECK: Pupils reactive to light. Extraocular muscles could not be tested. Oral cavity, no lesion. NECK: Supple. CHEST: Good air entry. LUNGS: Clear to auscultation. CARDIOVASCULAR: Regular rate and rhythm. No murmur or gallop. ABDOMEN: Soft, positive bowel sounds, not tender. EXTREMITIES: Lower extremities, no edema. CENTRAL NERVOUS SYSTEM: Unable to evaluate. LABORATORY DATA: White count 11.1, H and H 11.1 and 31.8 with platelets of 268. IMPRESSION: An 82-year-old with failure to thrive. ASSESSMENT AND PLAN: Failure to thrive, refusing to eat, dehydration and malnutrition. The patient will need nutrition support. Already family is aware of the possibility of a PEG. They are okay with it. I looked for them. They are not available. They were at the bedside, they are not there anymore, so we will wait for them and since already Dr. Jorge spoke to them and they are okay with this, so we will plan for PEG tomorrow. While the patient is on Rocephin, no need for further antibiotics. We will plan for PEG tomorrow and then further recommendations to follow. Other medical problems such as dementia, osteoarthritis, degenerative joint disease, etc., as per Dr. Jorge. Thank you, Dr. Jorge, for allowing me to participate in the care of the patient. If you have any further questions, please let me know. JOB# [id number]
--- NOTE | 2017-10-13 05:09 | Progress Notes ---
DATE: PATIENT'S IDENTIFICATION: The patient is an 82-year-old female. SUBJECTIVE: The patient seen and examined. The patient is not providing any meaningful history. The patient is not eating. The patient is scheduled to have a gastrostomy tube placement tomorrow. The patient's potassium is reported low. OBJECTIVE: On today's exam, VITAL SIGNS: Temperature 98.6, pulse 78, respiratory rate 18, blood pressure 100/38. HEENT: Multiple absent teeth noted. NECK: Supple, no JVD. HEART: Regular. CHEST AND LUNG: Equal in expansion. No expiratory wheezing. ABDOMEN: Soft. EXTREMITIES: No edema. AVAILABLE DIAGNOSTIC DATA: Potassium of 3.1, BUN and creatinine is 8 and 0.7, glucose of 115, albumin of 3. CLINICAL IMPRESSION: 1. Poor p.o. intake with significant dysphagia, needs gastrostomy tube placement for feeding. 2. Hypokalemia. 3. Urinary tract infection. 4. Degenerative joint disease. 5. Osteoporosis. 6. Hyperglycemia. PLAN: 1. Replace potassium. 2. IV fluid. 3. IV antibiotic. 4. General nursing care. 5. Follow lab. 6. Follow consult recommendation. 7. Care plan reviewed and discussed with staff as well. JOB# [id number]
[2017-10-13 06:36] LABS: ANION GAP 8.3 (7.0-16.0); BUN - UREA NITROGEN 6 mg/dL (7-25); CALCIUM SERUM 8.2 mg/dL (8.6-10.3); CARBON DIOXIDE 27.8 mEq/L (21.0-31.0); CHLORIDE 105 mEq/L (98-107); CREATININE - SERUM 0.6 mg/dL (0.6-1.2); GLUCOSE 119 mg/dL (70-105); INR 1.01 (0.5-1.4); MAGNESIUM 2.1 mg/dL (1.9-2.7); POTASSIUM SERUM 3.1 mEq/L (3.5-5.1); PROTHROMBIN TIME (TEST) 10.5 SECONDS (9.5-11.5); SODIUM SERUM 138 mEq/L (136-145)
[2017-10-13 06:39] LABS: % BASOPHILS 0.4 % (0.0-2.0); % LYMPHOCYTES 13.8 % (20.0-50.0); % NEUTROPHILS 76.8 % (40.0-80.0); EOSINOPHILE ABSOLUTE 0.2 Th/cmm (0.1-0.4); HEMOGLOBIN 10.3 gm/dL (12-16); LYMPHOCYTE ABSOLUTE 1.2 Th/cmm (1.5-3.0); MEAN CELL VOLUME 93.4 fl (81-100); MEAN CORPUSCULAR HEMOGLOBIN 32.2 pg (27.0-31.0); MEAN CORPUSCULAR HGB CONC 34.5 pg (28.0-36.0); MONOCYTE ABSOLUTE 0.6 Th/cmm (0.3-1.0); NEUTROPHILE ABSOLUTE 6.7 Th/cmm (1.8-8.0); PLATELET COUNT 294 Th/cmm (150-400); RED BLOOD COUNT 3.21 Mil/cmm (3.80-5.20); RED CELL DISTRIBUTION WIDTH 12.8 % (11.5-20.0); WHITE BLOOD COUNT 8.7 Th/cmm (4.8-10.8)
[2017-10-13] MEDS ORDERED: KCL 20mEq/100mL Premix 20 MEQ/100 ML PIGGYBACK IV ONE (08:58)
[2017-10-13] MEDS: Lactobacillus Rhamnosus GG 15 Billion CFU CAP.SPRINK PO SCH (09:00)
[2017-10-13] MEDS: Multivitamin w/ Minerals Tab PO SCH (09:00)
[2017-10-13] MEDS ORDERED: Lidocaine 2% Gel 5 mL TP ONE (09:40)
[2017-10-13] MEDS ORDERED: Propofol 10 mg/mL 20mL Vial **SURGERY USE ONLY IV ONE (09:40)
[2017-10-13] MEDS: Pantoprazole 40 mg EC Tab PO SCH (10:00)
[2017-10-13 14:21] LABS: GENTAMICIN TROUGH 0.5 ug/ml (0.2-2.0)
[2017-10-13] MEDS: D5-0.45NS 1,000 ML IV SCH (15:00)
--- NOTE | 2017-10-13 15:39 | Progress Notes ---
DATE: 10/10/2017 SUBJECTIVE: An 82-year-old female patient seen and examined. The patient is lying in the bed. The patient is nonverbal, does not provide any meaningful history. PHYSICAL EXAMINATION: GENERAL: The patient was seen and examined. The patient is nonverbal. The patient going for gastrostomy tube placement. The patient remained afebrile. VITAL SIGNS: Temperature 97.5, pulse is 60, respiratory rate is 18, and blood pressure 108/85. HEENT: No facial asymmetry. NECK: Supple, no JVD. HEART: Regular. CHEST: Lung equal in expansion, no wheezing, no crackles. ABDOMEN: Soft. EXTREMITIES: No edema. Bilateral foot drop noted. LABORATORY DATA: Urine culture remarkable for more than 100,000 colonies for gram-negative rods and susceptibility and identification is pending. Potassium is reported to be 3.1. Hemoglobin of 10.3 and platelet count of 294. CLINICAL IMPRESSION: 1. Complicated urinary tract infection. 2. Severe dysphagia. 3. Unable to take p.o. by mouth. 4. Normocytic normochromic anemia, most likely anemia of inflammation. 5. Advanced dementia. 6. Degenerative joint disease. PLAN: 1. Replace potassium. 2. Continue IV antibiotic. 3. Gastrostomy tube placement today. 4. IV fluid. 5. General nursing care. 6. Care plan reviewed and discussed. JOB# [id number]
--- NOTE | 2017-10-13 17:51 | Operative Report ---
DATE OF SURGERY: 10/13/2017 PROCEDURE: 1. Percutaneous endoscopic gastrostomy tube placement. 2. Esophagogastroduodenoscopy with biopsy. INDICATION FOR PROCEDURE: Dysphagia, failure to thrive, not eating. CONSENT: Informed consent was obtained from the patient and his daughter after planning benefits and risks including infection, bleeding, perforation, and . ANESTHESIA USED: Propofol given by anesthesiologist, Dr. Elizabeth. PREOPERATIVE DIAGNOSES: 1. Failure to thrive. 2. Dysphagia. 3. Weight loss. POSTOPERATIVE DIAGNOSES: 1. Dysphagia and failure to thrive, status post G-tube placement. 2. Large gastric ulcer, status post biopsy. DESCRIPTION OF PROCEDURE: The patient was sedated, placed on her back. Head was tilted to the side and flexed forward. Upper Olympus endoscope was introduced into the mouth and advanced to the esophagus, which was intubated under direct visualization. Esophageal mucosa was examined on the way down. It was essentially normal. Scope was advanced into the stomach where the gastric mucosa was examined. There was some coffee-ground liquid secretions seen there. Secretion was suctioned. There was gastritis. Scope was advanced toward the pylorus end, there was a large ulcer superior to the pylorus. The ulcer was more than a centimeter in diameter. Scope was retroflexed to examine the cardia and fundus showed some gastritis. Scope was then straightened and advanced through the pylorus to the duodenum where the bulb and second part were examined and they were both normal. Scope withdrawn to the stomach. Biopsy taken from the antrum for histopathology for CLOtest. Then, gastric ulcer biopsied more than 8 times. Then, an area of transillumination was chosen. Skin overlying the area was sterilized with Betadine, then anesthetized with 1% lidocaine. Anesthesia needle gone to the stomach easily, so the area was slightly incised with a scalpel with a long Angiocath with a trocar was introduced to stomach and surrounded by the snare. Trocar was then withdrawn while introduced the stomach and grasped by the snare. Scope was then withdrawn with the snare holding the wire. A size 20 G-tube was connected to the wire, then the point of entry was made larger with the scalpel. G-tube was pulled out of the patient's abdomen using standard pull technique. G-tube was secured in place. The patient tolerated the procedure well. There were no immediate postoperative complications. RECOMMENDATIONS: 1. May use the tube for medications. 2. After 12 hours flush G-tube with 40 mL of water, then start Jevity at 40 mL an hour. 3. Increase Jevity by 10 mL an hour every 12 hours up to total of 60 mL an hour. 4. Check residuals every 6 hours and hold feeding residual more than 200 mL. 5. Abdominal binder. 6. Pantoprazole 40 mg daily. 7. Follow up biopsy results. If the ulcer is malignant, then patient should have further recommendations. If not, then should have another endoscopy in 2 months. Thank you, Dr. Jorge for allowing me to participate in the care of the patient. If you have any further questions, please let me know. JOB# [id number] [facility]
[2017-10-14 06:15] LABS: % BASOPHILS 0.2 % (0.0-2.0); % EOSINOPHILS 2.6 % (0.0-5.0); % LYMPHOCYTES 15.7 % (20.0-50.0); % MONOCYTES 6.4 % (2.0-10.0); % NEUTROPHILS 75.1 % (40.0-80.0); EOSINOPHILE ABSOLUTE 0.2 Th/cmm (0.1-0.4); HEMATOCRIT 30.2 % (41.0-60); HEMOGLOBIN 10.1 gm/dL (12-16); LYMPHOCYTE ABSOLUTE 1.2 Th/cmm (1.5-3.0); MEAN CELL VOLUME 93.4 fl (81-100); MEAN CORPUSCULAR HEMOGLOBIN 31.2 pg (27.0-31.0); MEAN CORPUSCULAR HGB CONC 33.3 pg (28.0-36.0); MEAN PLATELET VOLUME 7.5 fl; MONOCYTE ABSOLUTE 0.5 Th/cmm (0.3-1.0); NEUTROPHILE ABSOLUTE 5.7 Th/cmm (1.8-8.0); PLATELET COUNT 332 Th/cmm (150-400); RED BLOOD COUNT 3.23 Mil/cmm (3.80-5.20); RED CELL DISTRIBUTION WIDTH 12.8 % (11.5-20.0); WHITE BLOOD COUNT 7.6 Th/cmm (4.8-10.8)
[2017-10-14] MEDS: Pantoprazole 40 mg EC Tab PO SCH (07:04)
[2017-10-14 07:19] LABS: ALB/GLOB RATIO 0.9 (1.0-1.8); ALBUMIN 2.6 gm/dL (3.7-5.3); ALKALINE PHOSPHATASE 73 U/L (34-104); ANION GAP 8.9 (7.0-16.0); BILIRUBIN,TOTAL 0.4 mg/dL (0.3-1.0); BUN - UREA NITROGEN 5 mg/dL (7-25); CALCIUM SERUM 8.2 mg/dL (8.6-10.3); CARBON DIOXIDE 27.1 mEq/L (21.0-31.0); CHLORIDE 103 mEq/L (98-107); CREATININE - SERUM 0.6 mg/dL (0.6-1.2); GLUCOSE 121 mg/dL (70-105); SGOT 18 U/L (13-39); SGPT/ALT 9 U/L (7-52); SODIUM SERUM 136 mEq/L (136-145); TOTAL PROTEIN,SERUM 5.5 gm/dL (6.0-8.3)
--- NOTE | 2017-10-14 08:57 | GI Progress Note ---
Subjective - Review of Systems Subjective: NO EVENTS Objective - Results Result Diagrams: 10/14/17 05:50 10/14/17 05:50 Recent Labs: Laboratory Last Values WBC 7.6 Th/cmm (4.8-10.8) 10/14/17 05:50 RBC 3.23 Mil/cmm (3.80-5.20) L 10/14/17 05:50 Hgb 10.1 gm/dL (12-16) L 10/14/17 05:50 Hct 30.2 % (41.0-60) L 10/14/17 05:50 MCV 93.4 fl (81-100) 10/14/17 05:50 MCH 31.2 pg (27.0-31.0) H 10/14/17 05:50 MCHC Differential 33.3 pg (28.0-36.0) 10/14/17 05:50 RDW 12.8 % (11.5-20.0) 10/14/17 05:50 Plt Count 332 Th/cmm (150-400) 10/14/17 05:50 MPV 7.5 fl 10/14/17 05:50 Neutrophils % 75.1 % (40.0-80.0) 10/14/17 05:50 Band Neutrophils % 5 % (0-10) 10/10/17 20:15 Lymphocytes % 15.7 % (20.0-50.0) L 10/14/17 05:50 Monocytes % 6.4 % (2.0-10.0) 10/14/17 05:50 Eosinophils % 2.6 % (0.0-5.0) 10/14/17 05:50 Basophils % 0.2 % (0.0-2.0) 10/14/17 05:50 Neutrophils (Manual) 83 % (40-80) H 10/10/17 20:15 Lymphocytes 10 % (20-50) L 10/10/17 20:15 Monocytes 2 % (2-10) 10/10/17 20:15 PT 10.5 SECONDS (9.5-11.5) 10/13/17 05:50 INR 1.01 (0.5-1.4) 10/13/17 05:50 Sodium 136 mEq/L (136-145) 10/14/17 05:50 Potassium 3.0 mEq/L (3.5-5.1) L 10/14/17 05:50 Chloride 103 mEq/L (98-107) 10/14/17 05:50 Carbon Dioxide 27.1 mEq/L (21.0-31.0) 10/14/17 05:50 Anion Gap 8.9 (7.0-16.0) 10/14/17 05:50 BUN 5 mg/dL (7-25) L 10/14/17 05:50 Creatinine 0.6 mg/dL (0.6-1.2) 10/14/17 05:50 Est GFR ( Amer) TNP 10/14/17 05:50 Est GFR (Non-Af Amer) TNP 10/14/17 05:50 BUN/Creatinine Ratio 8.3 10/14/17 05:50 Glucose 121 mg/dL (70-105) H 10/14/17 05:50 Hemoglobin A1c % 5.6 % (4.0-6.0) 10/10/17 20:20 Whole Bld Lactic Acid 1.95 mmol/L (0.60-1.99) 10/10/17 21:10 Calcium 8.2 mg/dL (8.6-10.3) L 10/14/17 05:50 Magnesium 2.1 mg/dL (1.9-2.7) 10/13/17 05:50 Total Bilirubin 0.4 mg/dL (0.3-1.0) 10/14/17 05:50 AST 18 U/L (13-39) 10/14/17 05:50 ALT 9 U/L (7-52) 10/14/17 05:50 Alkaline Phosphatase 73 U/L (34-104) 10/14/17 05:50 Troponin I < 0.01 ng/mL (0.01-0.05) L 10/10/17 20:15 B-Natriuretic Peptide 56.4 pg/mL (5.0-100.0) 10/10/17 20:15 Total Protein 5.5 gm/dL (6.0-8.3) L 10/14/17 05:50 Albumin 2.6 gm/dL (3.7-5.3) L 10/14/17 05:50 Globulin 2.9 gm/dL 10/14/17 05:50 Albumin/Globulin Ratio 0.9 (1.0-1.8) L 10/14/17 05:50 Urine Source CATH 10/10/17 20:45 Urine Color YELLOW 10/10/17 20:45 Urine Clarity CLOUDY (CLEAR) H 10/10/17 20:45 Urine pH 6.0 (4.6 - 8.0) 10/10/17 20:45 Ur Specific [place] >= 1.030 (1.005-1.030) 10/10/17 20:45 Urine Protein 100 mg/dL (NEGATIVE) H 10/10/17 20:45 Urine Glucose (UA) NEGATIVE mg/dL (NEGATIVE) 10/10/17 20:45 Urine Ketones NEGATIVE mg/dL (NEGATIVE) 10/10/17 20:45 Urine Blood MODERATE (NEGATIVE) H 10/10/17 20:45 Urine Nitrate POSITIVE (NEGATIVE) H 10/10/17 20:45 Urine Bilirubin SMALL (NEGATIVE) H 10/10/17 20:45 Urine Urobilinogen 2.0 E.U./dL (0.2 - 1.0) 10/10/17 20:45 Ur Leukocyte Esterase NEGATIVE (NEGATIVE) 10/10/17 20:45 Urine RBC 25-50 /hpf (0-5) H 10/10/17 20:45 Urine WBC 2-5 /hpf (0-5) 10/10/17 20:45 Ur Epithelial Cells MODERATE /lpf (FEW) 10/10/17 20:45 Urine Bacteria MANY /hpf (NONE SEEN) H 10/10/17 20:45 Gentamicin Peak 4.2 ug/ml (4.0-8.0) L 10/13/17 14:05 Gentamicin Trough 0.5 ug/ml (0.2-2.0) 10/13/17 05:50 - Physical Exam Vitals and I&O: Vital Signs Temp 98 F 10/14/17 07:53 Pulse 68 10/14/17 07:53 Resp 18 10/14/17 07:53 BP 97/49 10/14/17 07:53 Pulse Ox 97 10/14/17 07:53 Intake & Output 10/13/17 10/14/17 10/14/17 18:59 06:59 18:59 Intake Total 1000 280 Output Total 600 1350 Balance 400 -1070 Weight (lbs) 51.71 kg 53.977 kg Intake: Intake, IV Amount 1000 D5-0.45NS 1,000 ml @ 75 1000 mls/hr IV .[id number] [facility] Rx #:[id number] Tube Feeding 280 Output: Urine 600 1350 Other: # Bowel Movements 1 1 Stool Characteristics Soft Brown Weight Source Bedscale Bedscale Active Medications: Current Medications Acetaminophen (Tylenol) 650 mg PO Q4H PRN PRN Reason: Pain or Fever >101 Stop: 12/10/17 10:37 Ascorbic Acid (Vitamin C) 500 mg PO DAILY [facility] Stop: 12/10/17 13:59 Last Admin: 10/13/17 09:41 Dose: Not Given Donepezil HCl (Aricept) 10 mg PO HS [facility] Stop: 12/10/17 20:59 Last Admin: 10/13/17 20:58 Dose: 10 mg Heparin Sodium (Porcine) (Heparin) 5,000 units SUBQ Q12HR [facility] Stop: 12/10/17 20:59 Last Admin: 10/13/17 20:58 Dose: 5,000 units Dextrose/Sodium Chloride (D5-0.45ns) 1,000 mls @ 75 mls/hr IV .[id number] [facility] Stop: 12/09/17 22:59 Last Admin: 10/13/17 15:00 Dose: 75 mls/hr Ceftriaxone Sodium 1 gm/ (Dextrose) 50 mls @ 100 mls/hr IV Q24H [facility] Stop: 12/11/17 20:59 Last Admin: 08 20:58 Dose: 100 mls/hr Gentamicin Sulfate 100 mg/ (Sodium Chloride) 102.5 mls @ 100 mls/hr IV Q24H [facility] Stop: 12/13/17 08:59 Lactobacillus Rhamnosus (Culturelle 15b) 1 each PO DAILY [facility] Stop: 12/10/17 13:59 Last Admin: 10/13/17 09:00 Dose: Not Given Memantine (Namenda) 10 mg PO DAILY [facility] Stop: 12/10/17 13:59 Last Admin: 10/13/17 09:00 Dose: Not Given Miscellaneous (Gentamicin Iv Per Pharmacy) 1 ea PRN [facility] Stop: 12/10/17 10:44 Miscellaneous (Vte Chemical Prophylaxis Screen/ Admission) 1 ea PRN PRN PRN Reason: PROTOCOL Stop: 12/10/17 11:57 Miscellaneous (Probiotic Screen) 1 ea MC PRN PRN PRN Reason: PROTOCOL Stop: 12/10/17 12:06 Pantoprazole Sodium (Protonix) 40 mg PO QDAC [facility] Stop: 12/12/17 10:59 Last Admin: 10/14/17 07:04 Dose: 40 mg Assessment/Plan - Assessment Assessment: 82 YO FEMALE WITH DYSPHAGIA S/P PEG BRUNA TUBE FEEDS ALSO HAS GASTRIC ULCER HGB STABLE 1.CONT TUBE FEEDS 2.CONT PROTONIX 3.FOLLOW H/H
[2017-10-14] MEDS: Multivitamin w/ Minerals Tab PO SCH (09:14)
[2017-10-14] MEDS: Lactobacillus Rhamnosus GG 15 Billion CFU CAP.SPRINK PO SCH (09:15)
[2017-10-14] MEDS: D5-0.45NS 1,000 ML IV SCH (11:19)
[2017-10-14] MEDS ORDERED: KCL 20mEq/100mL Premix 20 MEQ/100 ML PIGGYBACK IV ONE (11:37)
--- NOTE | 2017-10-14 12:16 | Internal Medicine Prog Note ---
Internal Medicine Subjective - Subjective Service Date: 10/14/17 Patient seen and examined:: with staff, chart reviewed Patient is:: awake, non-interactive, in bed Patient Complaints of:: other (No verbal.) Internal Medicine Objective - Results Result Diagrams: 10/14/17 05:50 10/14/17 05:50 Recent Labs: Laboratory Last Values WBC 7.6 Th/cmm (4.8-10.8) 10/14/17 05:50 RBC 3.23 Mil/cmm (3.80-5.20) L 10/14/17 05:50 Hgb 10.1 gm/dL (12-16) L 10/14/17 05:50 Hct 30.2 % (41.0-60) L 10/14/17 05:50 MCV 93.4 fl (81-100) 10/14/17 05:50 MCH 31.2 pg (27.0-31.0) H 10/14/17 05:50 MCHC Differential 33.3 pg (28.0-36.0) 10/14/17 05:50 RDW 12.8 % (11.5-20.0) 10/14/17 05:50 Plt Count 332 Th/cmm (150-400) 10/14/17 05:50 MPV 7.5 fl 10/14/17 05:50 Neutrophils % 75.1 % (40.0-80.0) 10/14/17 05:50 Band Neutrophils % 5 % (0-10) 10/10/17 20:15 Lymphocytes % 15.7 % (20.0-50.0) L 10/14/17 05:50 Monocytes % 6.4 % (2.0-10.0) 10/14/17 05:50 Eosinophils % 2.6 % (0.0-5.0) 10/14/17 05:50 Basophils % 0.2 % (0.0-2.0) 10/14/17 05:50 Neutrophils (Manual) 83 % (40-80) H 10/10/17 20:15 Lymphocytes 10 % (20-50) L 10/10/17 20:15 Monocytes 2 % (2-10) 10/10/17 20:15 PT 10.5 SECONDS (9.5-11.5) 10/13/17 05:50 INR 1.01 (0.5-1.4) 10/13/17 05:50 Sodium 136 mEq/L (136-145) 10/14/17 05:50 Potassium 3.0 mEq/L (3.5-5.1) L 10/14/17 05:50 Chloride 103 mEq/L (98-107) 10/14/17 05:50 Carbon Dioxide 27.1 mEq/L (21.0-31.0) 10/14/17 05:50 Anion Gap 8.9 (7.0-16.0) 10/14/17 05:50 BUN 5 mg/dL (7-25) L 10/14/17 05:50 Creatinine 0.6 mg/dL (0.6-1.2) 10/14/17 05:50 Est GFR ( Amer) TNP 10/14/17 05:50 Est GFR (Non-Af Amer) TNP 10/14/17 05:50 BUN/Creatinine Ratio 8.3 10/14/17 05:50 Glucose 121 mg/dL (70-105) H 10/14/17 05:50 Hemoglobin A1c % 5.6 % (4.0-6.0) 10/10/17 20:20 Whole Bld Lactic Acid 1.95 mmol/L (0.60-1.99) 10/10/17 21:10 Calcium 8.2 mg/dL (8.6-10.3) L 10/14/17 05:50 Magnesium 1.9 mg/dL (1.9-2.7) 10/14/17 11:38 Total Bilirubin 0.4 mg/dL (0.3-1.0) 10/14/17 05:50 AST 18 U/L (13-39) 10/14/17 05:50 ALT 9 U/L (7-52) 10/14/17 05:50 Alkaline Phosphatase 73 U/L (34-104) 10/14/17 05:50 Troponin I < 0.01 ng/mL (0.01-0.05) L 10/10/17 20:15 B-Natriuretic Peptide 56.4 pg/mL (5.0-100.0) 10/10/17 20:15 Total Protein 5.5 gm/dL (6.0-8.3) L 10/14/17 05:50 Albumin 2.6 gm/dL (3.7-5.3) L 10/14/17 05:50 Globulin 2.9 gm/dL 10/14/17 05:50 Albumin/Globulin Ratio 0.9 (1.0-1.8) L 10/14/17 05:50 Urine Source CATH 10/10/17 20:45 Urine Color YELLOW 10/10/17 20:45 Urine Clarity CLOUDY (CLEAR) H 10/10/17 20:45 Urine pH 6.0 (4.6 - 8.0) 10/10/17 20:45 Ur Specific [place] >= 1.030 (1.005-1.030) 10/10/17 20:45 Urine Protein 100 mg/dL (NEGATIVE) H 10/10/17 20:45 Urine Glucose (UA) NEGATIVE mg/dL (NEGATIVE) 10/10/17 20:45 Urine Ketones NEGATIVE mg/dL (NEGATIVE) 10/10/17 20:45 Urine Blood MODERATE (NEGATIVE) H 10/10/17 20:45 Urine Nitrate POSITIVE (NEGATIVE) H 10/10/17 20:45 Urine Bilirubin SMALL (NEGATIVE) H 10/10/17 20:45 Urine Urobilinogen 2.0 E.U./dL (0.2 - 1.0) 10/10/17 20:45 Ur Leukocyte Esterase NEGATIVE (NEGATIVE) 10/10/17 20:45 Urine RBC 25-50 /hpf (0-5) H 10/10/17 20:45 Urine WBC 2-5 /hpf (0-5) 10/10/17 20:45 Ur Epithelial Cells MODERATE /lpf (FEW) 10/10/17 20:45 Urine Bacteria MANY /hpf (NONE SEEN) H 10/10/17 20:45 Gentamicin Peak 4.2 ug/ml (4.0-8.0) L 10/13/17 14:05 Gentamicin Trough 0.5 ug/ml (0.2-2.0) 10/13/17 05:50 - Physical Exam Vitals and I&O: Vital Signs Temp 98 F 10/14/17 07:53 Pulse 68 10/14/17 07:53 Resp 18 10/14/17 08:00 BP 97/49 10/14/17 07:53 Pulse Ox 97 10/14/17 07:53 Intake & Output 10/13/17 10/14/17 10/14/17 18:59 06:59 18:59 Intake Total 1000 1280 Output Total 600 1350 Balance 400 -70 Weight (lbs) 51.71 kg 53.977 kg Intake: Intake, IV Amount 1000 1000 D5-0.45NS 1,000 ml @ 75 1000 1000 mls/hr IV .[id number] [facility] Rx #:[id number] Tube Feeding 280 Output: Urine 600 1350 Other: # Bowel Movements 1 1 Stool Characteristics Soft Soft Brown Brown Weight Source Bedscale Bedscale Active Medications: Current Medications Acetaminophen (Tylenol) 650 mg PO Q4H PRN PRN Reason: Pain or Fever >101 Stop: 12/10/17 10:37 Ascorbic Acid (Vitamin C) 500 mg PO DAILY [facility] Stop: 12/10/17 13:59 Last Admin: 10/14/17 09:15 Dose: 500 mg Donepezil HCl (Aricept) 10 mg PO HS [facility] Stop: 12/10/17 20:59 Last Admin: 10/13/17 20:58 Dose: 10 mg Heparin Sodium (Porcine) (Heparin) 5,000 units SUBQ Q12HR [facility] Stop: 12/10/17 20:59 Last Admin: 10/14/17 09:16 Dose: 5,000 units Dextrose/Sodium Chloride (D5-0.45ns) 1,000 mls @ 75 mls/hr IV .[id number] [facility] Stop: 12/09/17 22:59 Last Admin: 10/14/17 11:19 Dose: 75 mls/hr Ceftriaxone Sodium 1 gm/ (Dextrose) 50 mls @ 100 mls/hr IV Q24H [facility] Stop: 12/11/17 20:59 Last Admin: 10/13/17 20:58 Dose: 100 mls/hr Gentamicin Sulfate 100 mg/ (Sodium Chloride) 102.5 mls @ 100 mls/hr IV Q24H [facility] Stop: 12/13/17 08:59 Last Admin: 10/14/17 09:15 Dose: 100 mls/hr Potassium Chloride (Potassium Chloride) 20 meq in 100 mls @ 50 mls/hr IV X1 ONE Stop: 10/14/17 13:36 Lactobacillus Rhamnosus (Culturelle 15b) 1 each PO DAILY [facility] Stop: 12/10/17 13:59 Last Admin: 10/14/17 09:15 Dose: 1 each Memantine (Namenda) 10 mg PO DAILY [facility] Stop: 12/10/17 13:59 Last Admin: 10/14/17 09:14 Dose: 10 mg Miscellaneous (Gentamicin Iv Per Pharmacy) 1 ea MC PRN [facility] Stop: 12/10/17 10:44 Miscellaneous (Vte Chemical Prophylaxis Screen/ Admission) 1 ea PRN PRN PRN Reason: PROTOCOL Stop: 12/10/17 11:57 Miscellaneous (Probiotic Screen) 1 ea PRN PRN PRN Reason: PROTOCOL Stop: 12/10/17 12:06 Pantoprazole Sodium (Protonix) 40 mg PO QDAC [facility] Stop: 12/12/17 10:59 Last Admin: 10/14/17 07:04 Dose: 40 mg General: weak, alert, demented, NAD HEENT: NC/AT, PERRLA, EOMI Neck: Supple, No JVD, No LAD Lungs: CTAB Cardiovascular: RRR, Normal S1, Normal S2, with murmur Abdomen: soft, +GT, positive bowel sound Extremities: contracture, atrophy Neurological: unable to follow command, spastic Internal Medicine Assmt/Plan - Assessment Assessment: Gastric Ulcer Alzheimer's dementia DJD Osteoporosis Failure to thrive E coli UTI. Fall risk. S/P PEG Gout. Hypokalemia. PVD. Hypotension asymptomatic. - Plan Plan: IVF. IV antibiotics G tube feeding General nursing care Monitor lab Follow lab. replace K and check Mg. Symptoms management Medication control. Continue current care Discussed with staff. Nutritional Asmnt/Malnutr-PDOC - Dietary Evaluation Malnutrition Findings (Please click <Entered> for more info): Nutritional Asmnt/Malnutrition Start: 10/11/17 13: 56 Text: Status: Complete Freq: Protocol: Document 10/11/17 13:56 LCHENG (Rec: 10/11/17 14:14 [id number]) Nutritional Asmnt/Malnutrition Patient General Information Nutritional Screening High Risk Diagnosis UTi, Sepsis Pertinent Medical Hx/Surgical Hx dementia, anxiety Subjective Information Pt seen sleeping at first attempt of visit, taking ultrasaound at second attempt of visit. Spoke with DIRECTOR CRITICAL CARE, pt had half of cream of wheat and healthy shake at breakfast, refused to eat at lunch. Current Diet Order/ Nutrition Support pureed, honey thickened liquids Pertinent Medications vit C, D5-045ns, culturelle Pertinent Labs 10/11 cl 113, glucose 181 6 K 3.4, glucose 183 Nutritional Hx/Data Height 1.52 m Height (Calculated Centimeters) 152.4 Current Weight (lbs) 47.627 kg Weight (Calculated Kilograms) 47.6 Weight (Calculated Grams) 86005.2 [place] Body Weight 100 % [place] Body Weight 105 Body Mass Index (BMI) 20.5 Weight Status Approriate GI Symptoms GI Symptoms None Last BM not indicated Difficult in: None Usual diet at home poor PO intake x 1 day before admitted Skin Integrity/Comment: old scar wound to sascrococcyx Current %PO Negligible < 25% Estimated Nutritional Goals BEE in Kcals: Using Current wt Calories/Kcals/Kg 27-32 Kcals Calculated 3176-2717 Protein: Using Current wt Protein g/k.2 Protein Calculated 57 Fluid: ml 1296-1536ml (1ml/kcal) Nutritional Problem 2. Problem Problem altered nutrition related labs Etiology endocrine dysfunction Signs/Symptoms: glucose 181-183 1. Problem Problem inadequate food intake Etiology possible poor appetite or mental status Signs/Symptoms: PO intake <25% Malnutrition Alert Is there a minimum of two criteria No selected? Query Text:Check all the applicable criteria. A minimum of two criteria are recommended for diagnosis of either severe or non-severe malnutrition. Malnutrition Related to Morbid Obesity Malnutrition related to morbid obesity No Intervention/Recommendation Comments 1. Continue with current diet as ordered. Encourage pt to eat and assist pt with all meals. MD to consider appetite stimulant. 2. Monitor glucose, PO intake. Consider adding supplements if PO continue <25% for 3 days . 3. Monitor PO intake, wt, labs and skin integrity 4. F/U as high risk in 2-3 days, 10/13-10/14 Expected Outcomes/Goals Expected Outcomes/Goals 1. PO intake to meet at least 75% of nutritional needs. 2. Wt stability, skin to remain intact, labs to approach WNL.
[2017-10-15] MEDS: D5-0.45NS 1,000 ML IV SCH ×2 (01:01→21:44)
[2017-10-15 06:40] LABS: ANION GAP 8.4 (7.0-16.0); BUN - UREA NITROGEN 3 mg/dL (7-25); CARBON DIOXIDE 25.7 mEq/L (21.0-31.0); CHLORIDE 107 mEq/L (98-107); CREATININE - SERUM 0.6 mg/dL (0.6-1.2); GLUCOSE 115 mg/dL (70-105); POTASSIUM SERUM 3.1 mEq/L (3.5-5.1); SODIUM SERUM 138 mEq/L (136-145)
[2017-10-15 06:49] LABS: % BASOPHILS 0.6 % (0.0-2.0); % EOSINOPHILS 4.3 % (0.0-5.0); % LYMPHOCYTES 20.6 % (20.0-50.0); % MONOCYTES 8.6 % (2.0-10.0); % NEUTROPHILS 65.9 % (40.0-80.0); EOSINOPHILE ABSOLUTE 0.2 Th/cmm (0.1-0.4); HEMATOCRIT 28.2 % (41.0-60); HEMOGLOBIN 9.5 gm/dL (12-16); LYMPHOCYTE ABSOLUTE 1.2 Th/cmm (1.5-3.0); MEAN CELL VOLUME 92.5 fl (81-100); MEAN CORPUSCULAR HEMOGLOBIN 31.2 pg (27.0-31.0); MEAN CORPUSCULAR HGB CONC 33.7 pg (28.0-36.0); MONOCYTE ABSOLUTE 0.5 Th/cmm (0.3-1.0); NEUTROPHILE ABSOLUTE 3.7 Th/cmm (1.8-8.0); PLATELET COUNT 339 Th/cmm (150-400); RED BLOOD COUNT 3.05 Mil/cmm (3.80-5.20); RED CELL DISTRIBUTION WIDTH 13.4 % (11.5-20.0)
[2017-10-15 06:50] LABS: WHITE BLOOD COUNT 5.6 Th/cmm (4.8-10.8)
[2017-10-15] MEDS: Pantoprazole 40 mg EC Tab PO SCH (07:01)
--- NOTE | 2017-10-15 08:44 | GI Progress Note ---
Subjective - Review of Systems Subjective: NO EVENTS Objective - Results Result Diagrams: 10/15/17 05:45 10/15/17 05:45 Recent Labs: Laboratory Last Values WBC 5.6 Th/cmm (4.8-10.8) D 10/15/17 05:45 RBC 3.05 Mil/cmm (3.80-5.20) L 10/15/17 05:45 Hgb 9.5 gm/dL (12-16) L 10/15/17 05:45 Hct 28.2 % (41.0-60) L 10/15/17 05:45 MCV 92.5 fl (81-100) 10/15/17 05:45 MCH 31.2 pg (27.0-31.0) H 10/15/17 05:45 MCHC Differential 33.7 pg (28.0-36.0) 10/15/17 05:45 RDW 13.4 % (11.5-20.0) 10/15/17 05:45 Plt Count 339 Th/cmm (150-400) 10/15/17 05:45 MPV 8.0 fl 10/15/17 05:45 Neutrophils % 65.9 % (40.0-80.0) 10/15/17 05:45 Band Neutrophils % 5 % (0-10) 10/10/17 20:15 Lymphocytes % 20.6 % (20.0-50.0) 10/15/17 05:45 Monocytes % 8.6 % (2.0-10.0) 10/15/17 05:45 Eosinophils % 4.3 % (0.0-5.0) 10/15/17 05:45 Basophils % 0.6 % (0.0-2.0) 10/15/17 05:45 Neutrophils (Manual) 83 % (40-80) H 10/10/17 20:15 Lymphocytes 10 % (20-50) L 10/10/17 20:15 Monocytes 2 % (2-10) 10/10/17 20:15 PT 10.5 SECONDS (9.5-11.5) 10/13/17 05:50 INR 1.01 (0.5-1.4) 10/13/17 05:50 Sodium 138 mEq/L (136-145) 10/15/17 05:45 Potassium 3.1 mEq/L (3.5-5.1) L 10/15/17 05:45 Chloride 107 mEq/L (98-107) 10/15/17 05:45 Carbon Dioxide 25.7 mEq/L (21.0-31.0) 10/15/17 05:45 Anion Gap 8.4 (7.0-16.0) 10/15/17 05:45 BUN 3 mg/dL (7-25) L 10/15/17 05:45 Creatinine 0.6 mg/dL (0.6-1.2) 10/15/17 05:45 Est GFR ( Amer) TNP 10/15/17 05:45 Est GFR (Non-Af Amer) TNP 10/15/17 05:45 BUN/Creatinine Ratio 5.0 10/15/17 05:45 Glucose 115 mg/dL (70-105) H 10/15/17 05:45 Hemoglobin A1c % 5.6 % (4.0-6.0) 10/10/17 20:20 Whole Bld Lactic Acid 1.95 mmol/L (0.60-1.99) 10/10/17 21:10 Calcium 8.0 mg/dL (8.6-10.3) L 10/15/17 05:45 Magnesium 1.9 mg/dL (1.9-2.7) 10/14/17 11:38 Total Bilirubin 0.4 mg/dL (0.3-1.0) 10/14/17 05:50 AST 18 U/L (13-39) 10/14/17 05:50 ALT 9 U/L (7-52) 10/14/17 05:50 Alkaline Phosphatase 73 U/L (34-104) 10/14/17 05:50 Troponin I < 0.01 ng/mL (0.01-0.05) L 10/10/17 20:15 B-Natriuretic Peptide 56.4 pg/mL (5.0-100.0) 10/10/17 20:15 Total Protein 5.5 gm/dL (6.0-8.3) L 10/14/17 05:50 Albumin 2.6 gm/dL (3.7-5.3) L 10/14/17 05:50 Globulin 2.9 gm/dL 10/14/17 05:50 Albumin/Globulin Ratio 0.9 (1.0-1.8) L 10/14/17 05:50 Urine Source CATH 10/10/17 20:45 Urine Color YELLOW 10/10/17 20:45 Urine Clarity CLOUDY (CLEAR) H 10/10/17 20:45 Urine pH 6.0 (4.6 - 8.0) 10/10/17 20:45 Ur Specific [place] >= 1.030 (1.005-1.030) 10/10/17 20:45 Urine Protein 100 mg/dL (NEGATIVE) H 10/10/17 20:45 Urine Glucose (UA) NEGATIVE mg/dL (NEGATIVE) 10/10/17 20:45 Urine Ketones NEGATIVE mg/dL (NEGATIVE) 10/10/17 20:45 Urine Blood MODERATE (NEGATIVE) H 10/10/17 20:45 Urine Nitrate POSITIVE (NEGATIVE) H 10/10/17 20:45 Urine Bilirubin SMALL (NEGATIVE) H 10/10/17 20:45 Urine Urobilinogen 2.0 E.U./dL (0.2 - 1.0) 10/10/17 20:45 Ur Leukocyte Esterase NEGATIVE (NEGATIVE) 10/10/17 20:45 Urine RBC 25-50 /hpf (0-5) H 10/10/17 20:45 Urine WBC 2-5 /hpf (0-5) 10/10/17 20:45 Ur Epithelial Cells MODERATE /lpf (FEW) 10/10/17 20:45 Urine Bacteria MANY /hpf (NONE SEEN) H 10/10/17 20:45 Gentamicin Peak 4.2 ug/ml (4.0-8.0) L 10/13/17 14:05 Gentamicin Trough 0.5 ug/ml (0.2-2.0) 10/13/17 05:50 Helicobacter pylori Ab POSITIVE (NEGATIVE) 10/13/17 10:15 - Physical Exam Vitals and I&O: Vital Signs Temp 98 F 10/15/17 04:00 Pulse 58 10/15/17 04:00 Resp 18 10/15/17 04:00 BP 95/49 10/15/17 04:00 Pulse Ox 100 10/15/17 04:00 Intake & Output 10/14/17 10/15/17 10/15/17 18:59 06:59 18:59 Intake Total 952.5 1760 Output Total 1300 1252 Balance -347.5 508 Weight (lbs) 53.977 kg 52.163 kg 52.163 kg Intake: Intake, IV Amount 302.5 1050 D5-0.45NS 1,000 ml @ 75 1000 mls/hr IV .[id number] [facility] Rx #:[id number] Gentamicin 100 mg In 102.5 Sodium Chloride 0.9% 100 ml @ 100 mls/hr IV Q24H [facility] Rx#:[id number] KCL 20mEq/100mL Premix 20 100 meq In 100 ml @ 50 mls/ hr IV X1 [facility] Rx#: [id number] KCL 20mEq/100mL Premix 20 100 meq In 100 ml @ 50 mls/ hr IV X1 [facility] Rx#: [id number] cefTRIAXone 1 gm In 50 Dextrose 5% 50 ml @ 100 mls/hr IV Q24H [facility] Rx#: [id number] Oral 0 0 Tube Feeding 650 610 Other 100 Output: Urine 1300 1250 Stool 2 Other: # Bowel Movements 1 Stool Characteristics Soft Soft Brown Weight Source Bedscale Bedscale Bedscale Active Medications: Current Medications Acetaminophen (Tylenol) 650 mg PO Q4H PRN PRN Reason: Pain or Fever >101 Stop: 12/10/17 10:37 Last Admin: 10/14/17 20:46 Dose: 650 mg Ascorbic Acid (Vitamin C) 500 mg PO DAILY [facility] Stop: 12/10/17 13:59 Last Admin: 10/14/17 09:15 Dose: 500 mg Donepezil HCl (Aricept) 10 mg PO HS [facility] Stop: 12/10/17 20:59 Last Admin: 10/14/17 20:46 Dose: 10 mg Heparin Sodium (Porcine) (Heparin) 5,000 units SUBQ Q12HR [facility] Stop: 12/10/17 20:59 Last Admin: 10/14/17 20:46 Dose: 5,000 units Dextrose/Sodium Chloride (D5-0.45ns) 1,000 mls @ 75 mls/hr IV .[id number] [facility] Stop: 12/09/17 22:59 Last Admin: 10/15/17 01:01 Dose: 75 mls/hr Ceftriaxone Sodium 1 gm/ (Dextrose) 50 mls @ 100 mls/hr IV Q24H [facility] Stop: 12/11/17 20:59 Last Infusion: 10/14/17 22:35 Dose: Infused Gentamicin Sulfate 100 mg/ (Sodium Chloride) 102.5 mls @ 100 mls/hr IV Q24H [facility] Stop: 12/13/17 08:59 Last Infusion: 10/14/17 14:42 Dose: Infused Lactobacillus Rhamnosus (Culturelle 15b) 1 each PO DAILY [facility] Stop: 12/10/17 13:59 Last Admin: 10/14/17 09:15 Dose: 1 each Memantine (Namenda) 10 mg PO DAILY [facility] Stop: 12/10/17 13:59 Last Admin: 10/14/17 09:14 Dose: 10 mg Miscellaneous (Gentamicin Iv Per Pharmacy) 1 ea PRN [facility] Stop: 12/10/17 10:44 Miscellaneous (Vte Chemical Prophylaxis Screen/ Admission) 1 [facility] PRN PRN PRN Reason: PROTOCOL Stop: 12/10/17 11:57 Miscellaneous (Probiotic Screen) 1 [facility] PRN PRN PRN Reason: PROTOCOL Stop: 12/10/17 12:06 Pantoprazole Sodium (Protonix) 40 mg PO QDAC [facility] Stop: 12/12/17 10:59 Last Admin: 10/15/17 07:01 Dose: 40 mg Assessment/Plan - Assessment Assessment: 82 YO FEMALE WITH DYSPHAGIA S/P PEG BRUNA TUBE FEEDS ALSO HAS GASTRIC ULCER HGB STABLE 1.CONT TUBE FEEDS 2.CONT PROTONIX 3.FOLLOW H/H
[2017-10-15] MEDS: Lactobacillus Rhamnosus GG 15 Billion CFU CAP.SPRINK PO SCH (08:59)
[2017-10-15] MEDS: Multivitamin w/ Minerals Tab PO SCH (08:59)
[2017-10-15] MEDS ORDERED: Potassium Chloride 20 mEq ER Tab PO ONE (19:30)
--- NOTE | 2017-10-15 23:10 | Infectious Disease Prog Note ---
Infectious Disease Subjective - Review of Systems Service Date: 10/15/17 Subjective: No change, no fever. Infectious Disease Objective - Results Result Diagrams: 10/15/17 05:45 10/15/17 05:45 Recent Labs: Laboratory Last Values WBC 5.6 Th/cmm (4.8-10.8) D 10/15/17 05:45 RBC 3.05 Mil/cmm (3.80-5.20) L 10/15/17 05:45 Hgb 9.5 gm/dL (12-16) L 10/15/17 05:45 Hct 28.2 % (41.0-60) L 10/15/17 05:45 MCV 92.5 fl (81-100) 10/15/17 05:45 MCH 31.2 pg (27.0-31.0) H 10/15/17 05:45 MCHC Differential 33.7 pg (28.0-36.0) 10/15/17 05:45 RDW 13.4 % (11.5-20.0) 10/15/17 05:45 Plt Count 339 Th/cmm (150-400) 10/15/17 05:45 MPV 8.0 fl 10/15/17 05:45 Neutrophils % 65.9 % (40.0-80.0) 10/15/17 05:45 Band Neutrophils % 5 % (0-10) 10/10/17 20:15 Lymphocytes % 20.6 % (20.0-50.0) 10/15/17 05:45 Monocytes % 8.6 % (2.0-10.0) 10/15/17 05:45 Eosinophils % 4.3 % (0.0-5.0) 10/15/17 05:45 Basophils % 0.6 % (0.0-2.0) 10/15/17 05:45 Neutrophils (Manual) 83 % (40-80) H 10/10/17 20:15 Lymphocytes 10 % (20-50) L 10/10/17 20:15 Monocytes 2 % (2-10) 10/10/17 20:15 PT 10.5 SECONDS (9.5-11.5) 10/13/17 05:50 INR 1.01 (0.5-1.4) 10/13/17 05:50 Sodium 138 mEq/L (136-145) 10/15/17 05:45 Potassium 3.1 mEq/L (3.5-5.1) L 10/15/17 05:45 Chloride 107 mEq/L (98-107) 10/15/17 05:45 Carbon Dioxide 25.7 mEq/L (21.0-31.0) 10/15/17 05:45 Anion Gap 8.4 (7.0-16.0) 10/15/17 05:45 BUN 3 mg/dL (7-25) L 10/15/17 05:45 Creatinine 0.6 mg/dL (0.6-1.2) 10/15/17 05:45 Est GFR ( Amer) TNP 10/15/17 05:45 Est GFR (Non-Af Amer) TNP 10/15/17 05:45 BUN/Creatinine Ratio 5.0 10/15/17 05:45 Glucose 115 mg/dL (70-105) H 10/15/17 05:45 Hemoglobin A1c % 5.6 % (4.0-6.0) 10/10/17 20:20 Whole Bld Lactic Acid 1.95 mmol/L (0.60-1.99) 10/10/17 21:10 Calcium 8.0 mg/dL (8.6-10.3) L 10/15/17 05:45 Magnesium 1.9 mg/dL (1.9-2.7) 10/14/17 11:38 Total Bilirubin 0.4 mg/dL (0.3-1.0) 10/14/17 05:50 AST 18 U/L (13-39) 10/14/17 05:50 ALT 9 U/L (7-52) 10/14/17 05:50 Alkaline Phosphatase 73 U/L (34-104) 10/14/17 05:50 Troponin I < 0.01 ng/mL (0.01-0.05) L 10/10/17 20:15 B-Natriuretic Peptide 56.4 pg/mL (5.0-100.0) 10/10/17 20:15 Total Protein 5.5 gm/dL (6.0-8.3) L 10/14/17 05:50 Albumin 2.6 gm/dL (3.7-5.3) L 10/14/17 05:50 Globulin 2.9 gm/dL 10/14/17 05:50 Albumin/Globulin Ratio 0.9 (1.0-1.8) L 10/14/17 05:50 Urine Source CATH 10/10/17 20:45 Urine Color YELLOW 10/10/17 20:45 Urine Clarity CLOUDY (CLEAR) H 10/10/17 20:45 Urine pH 6.0 (4.6 - 8.0) 10/10/17 20:45 Ur Specific [place] >= 1.030 (1.005-1.030) 10/10/17 20:45 Urine Protein 100 mg/dL (NEGATIVE) H 10/10/17 20:45 Urine Glucose (UA) NEGATIVE mg/dL (NEGATIVE) 10/10/17 20:45 Urine Ketones NEGATIVE mg/dL (NEGATIVE) 10/10/17 20:45 Urine Blood MODERATE (NEGATIVE) H 10/10/17 20:45 Urine Nitrate POSITIVE (NEGATIVE) H 10/10/17 20:45 Urine Bilirubin SMALL (NEGATIVE) H 10/10/17 20:45 Urine Urobilinogen 2.0 E.U./dL (0.2 - 1.0) 10/10/17 20:45 Ur Leukocyte Esterase NEGATIVE (NEGATIVE) 10/10/17 20:45 Urine RBC 25-50 /hpf (0-5) H 10/10/17 20:45 Urine WBC 2-5 /hpf (0-5) 10/10/17 20:45 Ur Epithelial Cells MODERATE /lpf (FEW) 10/10/17 20:45 Urine Bacteria MANY /hpf (NONE SEEN) H 10/10/17 20:45 Gentamicin Peak 4.2 ug/ml (4.0-8.0) L 10/13/17 14:05 Gentamicin Trough 0.5 ug/ml (0.2-2.0) 10/13/17 05:50 Helicobacter pylori Ab POSITIVE (NEGATIVE) 10/13/17 10:15 - Physical Exam Vitals and I&O: Vital Signs Temp 97.9 F 10/15/17 20:00 Pulse 87 10/15/17 20:00 Resp 17 10/15/17 20:00 BP 97/45 10/15/17 20:00 Pulse Ox 93 10/15/17 20:00 Intake & Output 10/15/17 10/15/17 10/16/17 06:59 18:59 06:59 Intake Total 1760 1600 Output Total 1252 900 Balance 508 700 Weight (lbs) 52.163 kg 52.163 kg Intake: Intake, IV Amount 1050 1000 D5-0.45NS 1,000 ml @ 75 1000 1000 mls/hr IV .[id number] [facility] Rx #:[id number] cefTRIAXone 1 gm In 50 Dextrose 5% 50 ml @ 100 mls/hr IV Q24H [facility] Rx#: [id number] Oral 0 Tube Feeding 610 600 Other 100 Output: Urine 1250 900 Stool 2 Other: # Bowel Movements 1 Stool Characteristics Soft Soft Weight Source Bedscale Bedscale Active Medications: Current Medications Acetaminophen (Tylenol) 650 mg PO Q4H PRN PRN Reason: Pain or Fever >101 Stop: 12/10/17 10:37 Last Admin: 10/15/17 21:05 Dose: 650 mg Ascorbic Acid (Vitamin C) 500 mg PO DAILY [facility] Stop: 12/10/17 13:59 Last Admin: 10/15/17 09:00 Dose: 500 mg Donepezil HCl (Aricept) 10 mg PO HS [facility] Stop: 12/10/17 20:59 Last Admin: 10/15/17 21:06 Dose: 10 mg Heparin Sodium (Porcine) (Heparin) 5,000 units SUBQ Q12HR [facility] Stop: 12/10/17 20:59 Last Admin: 10/15/17 21:06 Dose: 5,000 units Dextrose/Sodium Chloride (D5-0.45ns) 1,000 mls @ 75 mls/hr IV .[id number] [facility] Stop: 12/09/17 22:59 Last Admin: 10/15/17 21:44 Dose: 75 mls/hr Ceftriaxone Sodium 1 gm/ (Dextrose) 50 mls @ 100 mls/hr IV Q24H [facility] Stop: 12/11/17 20:59 Last Admin: 10/15/17 21:05 Dose: 100 mls/hr Gentamicin Sulfate 100 mg/ (Sodium Chloride) 102.5 mls @ 100 mls/hr IV Q24H [facility] Stop: 12/13/17 08:59 Last Admin: 10/15/17 08:52 Dose: 100 mls/hr Lactobacillus Rhamnosus (Culturelle 15b) 1 each PO DAILY [facility] Stop: 12/10/17 13:59 Last Admin: 10/15/17 08:59 Dose: 1 each Memantine (Namenda) 10 mg PO DAILY [facility] Stop: 12/10/17 13:59 Last Admin: 10/15/17 09:00 Dose: 10 mg Miscellaneous (Gentamicin Iv Per Pharmacy) 1 ea PRN [facility] Stop: 12/10/17 10:44 Miscellaneous (Vte Chemical Prophylaxis Screen/ Admission) 1 [facility] PRN PRN PRN Reason: PROTOCOL Stop: 12/10/17 11:57 Miscellaneous (Probiotic Screen) 1 [facility] PRN PRN PRN Reason: PROTOCOL Stop: 12/10/17 12:06 Pantoprazole Sodium (Protonix) 40 mg PO QDAC [facility] Stop: 12/12/17 10:59 Last Admin: 10/15/17 07:01 Dose: 40 mg General: well developed, cachectic HEENT: atraumatic, normocephalic, PERRLA, EOMI Neck: supple, no thyromegaly, no lymphadenopathy Cardiovascular: S1S2, regular Lungs: clear to auscultation bilaterally, clear to percussion Abdomen: soft, no tender, no distended, no mass, no hepatomegaly Extremities: no cyanosis, no clubbing, no edema Neurological: other (not responding) Skin: intact Infectious Disease Assmt/Plan - Assessment Assessment: 1. Leukocytosis. 2. UTI. 3. Severe dementia - Plan Plan: CPM. Continue Rocephin. Discontinue gentamicin. Nutritional Asmnt/Malnutr-PDOC - Dietary Evaluation Malnutrition Findings (Please click <Entered> for more info): Nutritional Asmnt/Malnutrition Start: 10/11/17 13: 56 Text: Status: Complete Freq: Protocol: Document 10/11/17 13:56 LCHENG (Rec: 10/11/17 14:14 LCHENG [id number]) Nutritional Asmnt/Malnutrition Patient General Information Nutritional Screening High Risk Diagnosis UTi, Sepsis Pertinent Medical Hx/Surgical Hx dementia, anxiety Subjective Information Pt seen sleeping at first attempt of visit, taking ultrasaound at second attempt of visit. Spoke with [employer], pt had half of cream of wheat and healthy shake at breakfast, refused to eat at lunch. Current Diet Order/ Nutrition Support pureed, honey thickened liquids Pertinent Medications vit C, D5-045ns, culturelle Pertinent Labs 10/11 cl 113, glucose 181 6/5 K 3.4, glucose 183 Nutritional Hx/Data Height 1.52 m Height (Calculated Centimeters) 152.4 Current Weight (lbs) 47.627 kg Weight (Calculated Kilograms) 47.6 Weight (Calculated Grams) 87700.2 [place] Body Weight 100 % [place] Body Weight 105 Body Mass Index (BMI) 20.5 Weight Status Approriate GI Symptoms GI Symptoms None Last BM not indicated Difficult in: None Usual diet at home poor PO intake x 1 day before admitted Skin Integrity/Comment: old 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 Problem Problem altered nutrition related labs Etiology endocrine dysfunction Signs/Symptoms: glucose 181-183 1. Problem Problem inadequate food intake Etiology possible poor appetite or mental status Signs/Symptoms: PO intake <25% Malnutrition Alert Is there a minimum of two criteria No selected? Query Text:Check all the applicable criteria. A minimum of two criteria are recommended for diagnosis of either severe or non-severe malnutrition. Malnutrition Related to Morbid Obesity Malnutrition related to morbid obesity No Intervention/Recommendation Comments 1. Continue with current diet as ordered. Encourage pt to eat and assist pt with all meals. MD to consider appetite stimulant. 2. Monitor glucose, PO intake. Consider adding supplements if PO continue <25% for 3 days . 3. Monitor PO intake, wt, labs and skin integrity 4. F/U as high risk in 2-3 days, 10/13-10/14 Expected Outcomes/Goals Expected Outcomes/Goals 1. PO intake to meet at least 75% of nutritional needs. 2. Wt stability, skin to remain intact, labs to approach WNL.
[2017-10-16] MEDS: Pantoprazole 40 mg EC Tab PO SCH (06:37)
[2017-10-16 06:38] LABS: ANION GAP 9.9 (7.0-16.0); BUN - UREA NITROGEN 10 mg/dL (7-25); CALCIUM SERUM 7.8 mg/dL (8.6-10.3); CHLORIDE 105 mEq/L (98-107); CREATININE - SERUM 0.6 mg/dL (0.6-1.2); GLUCOSE 136 mg/dL (70-105); POTASSIUM SERUM 3.9 mEq/L (3.5-5.1); SODIUM SERUM 137 mEq/L (136-145)
[2017-10-16 07:12] LABS: % BASOPHILS 0.5 % (0.0-2.0); % LYMPHOCYTES 20.8 % (20.0-50.0); % MONOCYTES 8.7 % (2.0-10.0); EOSINOPHILE ABSOLUTE 0.2 Th/cmm (0.1-0.4); HEMATOCRIT 28.3 % (41.0-60); HEMOGLOBIN 9.7 gm/dL (12-16); LYMPHOCYTE ABSOLUTE 1.2 Th/cmm (1.5-3.0); MEAN CELL VOLUME 93.5 fl (81-100); MEAN CORPUSCULAR HEMOGLOBIN 32.1 pg (27.0-31.0); MEAN CORPUSCULAR HGB CONC 34.3 pg (28.0-36.0); MEAN PLATELET VOLUME 7.9 fl; MONOCYTE ABSOLUTE 0.5 Th/cmm (0.3-1.0); NEUTROPHILE ABSOLUTE 3.9 Th/cmm (1.8-8.0); PLATELET COUNT 449 Th/cmm (150-400); RED BLOOD COUNT 3.03 Mil/cmm (3.80-5.20); WHITE BLOOD COUNT 5.8 Th/cmm (4.8-10.8)
[2017-10-16] MEDS: Multivitamin w/ Minerals Tab PO SCH (09:03)
[2017-10-16] MEDS: Lactobacillus Rhamnosus GG 15 Billion CFU CAP.SPRINK PO SCH (09:03)
--- NOTE | 2017-10-16 10:36 | Progress Notes ---
DATE: IDENTIFICATION: An 82-year-old female. SUBJECTIVE: The patient seen and examined. The patient is very much awake, trying to communicate, but cannot get meaningful history due to her advanced dementia. OBJECTIVE: VITAL SIGNS: Temperature 97.5, pulse 74, respiratory rate 18, blood pressure 100/48. HEENT: Multiple absent teeth noted. NECK: Supple, no JVD. HEART: Both heart sounds are regular. CHEST AND LUNGS: Equal in expansion with no expiratory wheezing. ABDOMEN: Soft. Gastrostomy tube noted. Bowels sounds are present. EXTREMITIES: No edema. Available diagnostic data has been reviewed. CLINICAL IMPRESSION: 1. Helicobacter pylori antibody positive. 2. Hypokalemia. 3. Escherichia coli urinary tract infection. 4. Status post gastrostomy tube placement. 5. Anemia of inflammation. PLAN: 1. Replace potassium. 2. Treat H. pylori induced ulcer with clarithromycin, amoxicillin, and Prevacid. Continue tube feeding. Continue IV hydration. Follow up lab has been requested. 3. Care plan reviewed and discussed. JOB# [id number]
--- NOTE | 2017-10-16 14:19 | Pathology Report ---
[id number] Collection date: 10/13/2017 Surgeon: Dr. Stanford Lazo Specimen Description: Gastric ulcer biopsy Gross Description: Received in formalin are multiple thorpe soft tissue fragments ranging from 0.1 to 0.2 cm in greatest dimension. Totally submitted in one cassette. Microscopic Description: The histologic sections show ulcerated gastric mucosa with acute inflammation consisting of large collections of neutrophils with the area of ulceration showing a necrotic background and focal hemorrhage. There is also fibrosis and granulation tissue reaction associated with the area of ulceration. Other areas show intact gastric mucosa with chronic gastritis with increased numbers of plasma cells and lymphocytes. There is no evidence for atypia. The Giemsa stain shows no evidence for Helicobacter pylori. Diagnosis: 1. Gastric ulcer with associated acute inflammation and granulation tissue reaction (gastric ulcer biopsy) 2. There is also chronic gastritis present 3. The Giemsa stain shows no evidence for Helicobacter pylori. Comment: Recommend clinical correlation and comparison with the results of OFELIA test. JOB# [id number] [facility]
--- NOTE | 2017-10-16 15:22 | Infectious Disease Prog Note ---
Infectious Disease Subjective - Review of Systems Service Date: 10/16/17 Subjective: No change, no fever. Infectious Disease Objective - Results Result Diagrams: 10/16/17 05:50 10/16/17 05:50 Recent Labs: Laboratory Last Values WBC 5.8 Th/cmm (4.8-10.8) 10/16/17 05:50 RBC 3.03 Mil/cmm (3.80-5.20) L 10/16/17 05:50 Hgb 9.7 gm/dL (12-16) L 10/16/17 05:50 Hct 28.3 % (41.0-60) L 10/16/17 05:50 MCV 93.5 fl (81-100) 10/16/17 05:50 MCH 32.1 pg (27.0-31.0) H 10/16/17 05:50 MCHC Differential 34.3 pg (28.0-36.0) 10/16/17 05:50 RDW 13.0 % (11.5-20.0) 10/16/17 05:50 Plt Count 449 Th/cmm (150-400) H 10/16/17 05:50 MPV 7.9 fl 10/16/17 05:50 Neutrophils % 66.0 % (40.0-80.0) 10/16/17 05:50 Band Neutrophils % 5 % (0-10) 10/10/17 20:15 Lymphocytes % 20.8 % (20.0-50.0) 10/16/17 05:50 Monocytes % 8.7 % (2.0-10.0) 10/16/17 05:50 Eosinophils % 4.0 % (0.0-5.0) 10/16/17 05:50 Basophils % 0.5 % (0.0-2.0) 10/16/17 05:50 Neutrophils (Manual) 83 % (40-80) H 10/10/17 20:15 Lymphocytes 10 % (20-50) L 10/10/17 20:15 Monocytes 2 % (2-10) 10/10/17 20:15 PT 10.5 SECONDS (9.5-11.5) 10/13/17 05:50 INR 1.01 (0.5-1.4) 10/13/17 05:50 Sodium 137 mEq/L (136-145) 10/16/17 05:50 Potassium 3.9 mEq/L (3.5-5.1) 10/16/17 05:50 Chloride 105 mEq/L (98-107) 10/16/17 05:50 Carbon Dioxide 26.0 mEq/L (21.0-31.0) 10/16/17 05:50 Anion Gap 9.9 (7.0-16.0) 10/16/17 05:50 BUN 10 mg/dL (7-25) 10/16/17 05:50 Creatinine 0.6 mg/dL (0.6-1.2) 10/16/17 05:50 Est GFR ( Amer) TNP 10/16/17 05:50 Est GFR (Non-Af Amer) TNP 10/16/17 05:50 BUN/Creatinine Ratio 16.7 10/16/17 05:50 Glucose 136 mg/dL (70-105) H 10/16/17 05:50 Hemoglobin A1c % 5.6 % (4.0-6.0) 10/10/17 20:20 Whole Bld Lactic Acid 1.95 mmol/L (0.60-1.99) 10/10/17 21:10 Calcium 7.8 mg/dL (8.6-10.3) L 10/16/17 05:50 Magnesium 1.9 mg/dL (1.9-2.7) 10/14/17 11:38 Total Bilirubin 0.4 mg/dL (0.3-1.0) 10/14/17 05:50 AST 18 U/L (13-39) 10/14/17 05:50 ALT 9 U/L (7-52) 10/14/17 05:50 Alkaline Phosphatase 73 U/L (34-104) 10/14/17 05:50 Troponin I < 0.01 ng/mL (0.01-0.05) L 10/10/17 20:15 B-Natriuretic Peptide 56.4 pg/mL (5.0-100.0) 10/10/17 20:15 Total Protein 5.5 gm/dL (6.0-8.3) L 10/14/17 05:50 Albumin 2.6 gm/dL (3.7-5.3) L 06/09/18 05:50 Globulin 2.9 gm/dL 10/14/17 05:50 Albumin/Globulin Ratio 0.9 (1.0-1.8) L 10/14/17 05:50 Urine Source CATH 10/10/17 20:45 Urine Color YELLOW 10/10/17 20:45 Urine Clarity CLOUDY (CLEAR) H 10/10/17 20:45 Urine pH 6.0 (4.6 - 8.0) 10/10/17 20:45 Ur Specific [place] >= 1.030 (1.005-1.030) 10/10/17 20:45 Urine Protein 100 mg/dL (NEGATIVE) H 10/10/17 20:45 Urine Glucose (UA) NEGATIVE mg/dL (NEGATIVE) 10/10/17 20:45 Urine Ketones NEGATIVE mg/dL (NEGATIVE) 10/10/17 20:45 Urine Blood MODERATE (NEGATIVE) H 10/10/17 20:45 Urine Nitrate POSITIVE (NEGATIVE) H 10/10/17 20:45 Urine Bilirubin SMALL (NEGATIVE) H 10/10/17 20:45 Urine Urobilinogen 2.0 E.U./dL (0.2 - 1.0) 10/10/17 20:45 Ur Leukocyte Esterase NEGATIVE (NEGATIVE) 10/10/17 20:45 Urine RBC 25-50 /hpf (0-5) H 10/10/17 20:45 Urine WBC 2-5 /hpf (0-5) 10/10/17 20:45 Ur Epithelial Cells MODERATE /lpf (FEW) 10/10/17 20:45 Urine Bacteria MANY /hpf (NONE SEEN) H 10/10/17 20:45 Gentamicin Peak 4.2 ug/ml (4.0-8.0) L 10/13/17 14:05 Gentamicin Trough 0.5 ug/ml (0.2-2.0) 10/13/17 05:50 Helicobacter pylori Ab POSITIVE (NEGATIVE) 10/13/17 10:15 - Physical Exam Vitals and I&O: Vital Signs Temp 97.7 F 10/16/17 11:53 Pulse 79 10/16/17 11:53 Resp 19 10/16/17 11:53 BP 81/43 10/16/17 11:53 Pulse Ox 95 10/16/17 11:53 Intake & Output 10/15/17 10/16/17 10/16/17 18:59 06:59 18:59 Intake Total 1600 870 Output Total 900 701 Balance 700 169 Weight (lbs) 52.163 kg 55.792 kg Intake: Intake, IV Amount 1000 50 D5-0.45NS 1,000 ml @ 75 1000 mls/hr IV .[id number] [facility] Rx #:[id number] cefTRIAXone 1 gm In 50 Dextrose 5% 50 ml @ 100 mls/hr IV Q24H [facility] Rx#: [id number] Oral 0 Tube Feeding 600 720 Other 100 Output: Urine 900 700 Stool 1 Other: Stool Characteristics Soft Soft Weight Source Bedscale Bedscale Active Medications: Current Medications Acetaminophen (Tylenol) 650 mg PO Q4H PRN PRN Reason: Pain or Fever >101 Stop: 12/10/17 10:37 Last Admin: 10/15/17 21:05 Dose: 650 mg Amoxicillin (Amoxil) 1,000 mg PO BID [facility] Stop: 12/15/17 09:14 Last Admin: 10/16/17 10:29 Dose: 1,000 mg Ascorbic Acid (Vitamin C) 500 mg PO DAILY RADHA Stop: 12/10/17 13:59 Last Admin: 10/16/17 09:03 Dose: 500 mg Clarithromycin (Biaxin) 500 mg PO BID RADHA Stop: 12/15/17 09:14 Last Admin: 10/16/17 10:27 Dose: 500 mg Donepezil HCl (Aricept) 10 mg PO HS [facility] Stop: 12/10/17 20:59 Last Admin: 10/15/17 21:06 Dose: 10 mg Heparin Sodium (Porcine) (Heparin) 5,000 units SUBQ Q12HR RADHA Stop: 12/10/17 20:59 Last Admin: 10/16/17 09:05 Dose: 5,000 units Lactobacillus Rhamnosus (Culturelle 15b) 1 each PO DAILY [facility] Stop: 12/10/17 13:59 Last Admin: 10/16/17 09:03 Dose: 1 each Memantine (Namenda) 10 mg PO DAILY [facility] Stop: 12/10/17 13:59 Last Admin: 10/16/17 09:04 Dose: 10 mg Miscellaneous (Vte Chemical Prophylaxis Screen/ Admission) 1 ea PRN PRN PRN Reason: PROTOCOL Stop: 12/10/17 11:57 Miscellaneous (Probiotic Screen) 1 ea PRN PRN PRN Reason: PROTOCOL Stop: 12/10/17 12:06 Pantoprazole Sodium (Protonix) 40 mg PO BID [facility] Stop: 12/15/17 16:59 General: no acute distress, well developed, well nourished HEENT: atraumatic, normocephalic, PERRLA, EOMI Neck: supple, no thyromegaly Cardiovascular: S1S2, regular Lungs: clear to auscultation bilaterally, clear to percussion Abdomen: soft, no tender, no distended, no hepatomegaly Extremities: no cyanosis, no clubbing, no edema Neurological: awake, alert, oriented Skin: intact Infectious Disease Assmt/Plan - Assessment Assessment: 1. Leukocytosis. improved. 2. UTI. 3. Severe dementia - Plan Plan: CPM. Continue Rocephin. Nutritional Asmnt/Malnutr-PDOC - Dietary Evaluation Malnutrition Findings (Please click <Entered> for more info): Nutritional Asmnt/Malnutrition Start: 10/11/17 13: 56 Text: Status: Complete Freq: Protocol: Document 10/11/17 13:56 ALFONZO (Rec: 10/11/17 14:14 [email or web address]) Nutritional Asmnt/Malnutrition Patient General Information Nutritional Screening High Risk Diagnosis UTi, Sepsis Pertinent Medical Hx/Surgical Hx dementia, anxiety Subjective Information Pt seen sleeping at first attempt of visit, taking ultrasaound at second attempt of visit. Spoke with DRAFTER ([employer]) [employer], pt had half of cream of wheat and healthy shake at breakfast, refused to eat at lunch. Current Diet Order/ Nutrition Support pureed, honey thickened liquids Pertinent Medications vit C, D5-045ns, culturelle Pertinent Labs 10/11 cl 113, glucose 181 6/5 K 3.4, glucose 183 Nutritional Hx/Data Height 1.52 m Height (Calculated Centimeters) 152.4 Current Weight (lbs) 47.627 kg Weight (Calculated Kilograms) 47.6 Weight (Calculated Grams) 10111.2 [place] Body Weight 100 % [place] Body Weight 105 Body Mass Index (BMI) 20.5 Weight Status Approriate GI Symptoms GI Symptoms None Last BM not indicated Difficult in: None Usual diet at home poor PO intake x 1 day before admitted Skin Integrity/Comment: old scar wound to sascrococcyx Current %PO Negligible < 25% Estimated Nutritional Goals BEE in Kcals: Using Current wt Calories/Kcals/Kg 27-32 Kcals Calculated 8221-1619 Protein: Using Current wt Protein g/k.2 Protein Calculated 57 Fluid: ml 1296-1536ml (1ml/kcal) Nutritional Problem 2. Problem Problem altered nutrition related labs Etiology endocrine dysfunction Signs/Symptoms: glucose 181-183 1. Problem Problem inadequate food intake Etiology possible poor appetite or mental status Signs/Symptoms: PO intake <25% Malnutrition Alert Is there a minimum of two criteria No selected? Query Text:Check all the applicable criteria. A minimum of two criteria are recommended for diagnosis of either severe or non-severe malnutrition. Malnutrition Related to Morbid Obesity Malnutrition related to morbid obesity No Intervention/Recommendation Comments 1. Continue with current diet as ordered. Encourage pt to eat and assist pt with all meals. MD to consider appetite stimulant. 2. Monitor glucose, PO intake. Consider adding supplements if PO continue <25% for 3 days . 3. Monitor PO intake, wt, labs and skin integrity 4. F/U as high risk in 2-3 days, 10/13-10/14 Expected Outcomes/Goals Expected Outcomes/Goals 1. PO intake to meet at least 75% of nutritional needs. 2. Wt stability, skin to remain intact, labs to approach WNL.
--- NOTE | 2017-10-16 15:25 | Infectious Disease Prog Note ---
Infectious Disease Subjective - Review of Systems Service Date: 10/16/17 Subjective: No change, no fever. Infectious Disease Objective - Results Result Diagrams: 10/16/17 05:50 10/16/17 05:50 Recent Labs: Laboratory Last Values WBC 5.8 Th/cmm (4.8-10.8) 10/16/17 05:50 RBC 3.03 Mil/cmm (3.80-5.20) L 10/16/17 05:50 Hgb 9.7 gm/dL (12-16) L 10/16/17 05:50 Hct 28.3 % (41.0-60) L 10/16/17 05:50 MCV 93.5 fl (81-100) 10/16/17 05:50 MCH 32.1 pg (27.0-31.0) H 10/16/17 05:50 MCHC Differential 34.3 pg (28.0-36.0) 10/16/17 05:50 RDW 13.0 % (11.5-20.0) 10/16/17 05:50 Plt Count 449 Th/cmm (150-400) H 10/16/17 05:50 MPV 7.9 fl 10/16/17 05:50 Neutrophils % 66.0 % (40.0-80.0) 10/16/17 05:50 Band Neutrophils % 5 % (0-10) 10/10/17 20:15 Lymphocytes % 20.8 % (20.0-50.0) 10/16/17 05:50 Monocytes % 8.7 % (2.0-10.0) 10/16/17 05:50 Eosinophils % 4.0 % (0.0-5.0) 10/16/17 05:50 Basophils % 0.5 % (0.0-2.0) 10/16/17 05:50 Neutrophils (Manual) 83 % (40-80) H 10/10/17 20:15 Lymphocytes 10 % (20-50) L 10/10/17 20:15 Monocytes 2 % (2-10) 10/10/17 20:15 PT 10.5 SECONDS (9.5-11.5) 10/13/17 05:50 INR 1.01 (0.5-1.4) 10/13/17 05:50 Sodium 137 mEq/L (136-145) 10/16/17 05:50 Potassium 3.9 mEq/L (3.5-5.1) 10/16/17 05:50 Chloride 105 mEq/L (98-107) 10/16/17 05:50 Carbon Dioxide 26.0 mEq/L (21.0-31.0) 10/16/17 05:50 Anion Gap 9.9 (7.0-16.0) 10/16/17 05:50 BUN 10 mg/dL (7-25) 10/16/17 05:50 Creatinine 0.6 mg/dL (0.6-1.2) 10/16/17 05:50 Est GFR ( Amer) TNP 10/16/17 05:50 Est GFR (Non-Af Amer) TNP 10/16/17 05:50 BUN/Creatinine Ratio 16.7 10/16/17 05:50 Glucose 136 mg/dL (70-105) H 10/16/17 05:50 Hemoglobin A1c % 5.6 % (4.0-6.0) 10/10/17 20:20 Whole Bld Lactic Acid 1.95 mmol/L (0.60-1.99) 10/10/17 21:10 Calcium 7.8 mg/dL (8.6-10.3) L 10/16/17 05:50 Magnesium 1.9 mg/dL (1.9-2.7) 10/14/17 11:38 Total Bilirubin 0.4 mg/dL (0.3-1.0) 10/14/17 05:50 AST 18 U/L (13-39) 10/14/17 05:50 ALT 9 U/L (7-52) 10/14/17 05:50 Alkaline Phosphatase 73 U/L (34-104) 10/14/17 05:50 Troponin I < 0.01 ng/mL (0.01-0.05) L 10/10/17 20:15 B-Natriuretic Peptide 56.4 pg/mL (5.0-100.0) 10/10/17 20:15 Total Protein 5.5 gm/dL (6.0-8.3) L 10/14/17 05:50 Albumin 2.6 gm/dL (3.7-5.3) L 06/09/18 05:50 Globulin 2.9 gm/dL 10/14/17 05:50 Albumin/Globulin Ratio 0.9 (1.0-1.8) L 10/14/17 05:50 Urine Source CATH 10/10/17 20:45 Urine Color YELLOW 10/10/17 20:45 Urine Clarity CLOUDY (CLEAR) H 10/10/17 20:45 Urine pH 6.0 (4.6 - 8.0) 10/10/17 20:45 Ur Specific [place] >= 1.030 (1.005-1.030) 10/10/17 20:45 Urine Protein 100 mg/dL (NEGATIVE) H 10/10/17 20:45 Urine Glucose (UA) NEGATIVE mg/dL (NEGATIVE) 10/10/17 20:45 Urine Ketones NEGATIVE mg/dL (NEGATIVE) 10/10/17 20:45 Urine Blood MODERATE (NEGATIVE) H 10/10/17 20:45 Urine Nitrate POSITIVE (NEGATIVE) H 10/10/17 20:45 Urine Bilirubin SMALL (NEGATIVE) H 10/10/17 20:45 Urine Urobilinogen 2.0 E.U./dL (0.2 - 1.0) 10/10/17 20:45 Ur Leukocyte Esterase NEGATIVE (NEGATIVE) 10/10/17 20:45 Urine RBC 25-50 /hpf (0-5) H 10/10/17 20:45 Urine WBC 2-5 /hpf (0-5) 10/10/17 20:45 Ur Epithelial Cells MODERATE /lpf (FEW) 10/10/17 20:45 Urine Bacteria MANY /hpf (NONE SEEN) H 10/10/17 20:45 Gentamicin Peak 4.2 ug/ml (4.0-8.0) L 10/13/17 14:05 Gentamicin Trough 0.5 ug/ml (0.2-2.0) 10/13/17 05:50 Helicobacter pylori Ab POSITIVE (NEGATIVE) 10/13/17 10:15 - Physical Exam Vitals and I&O: Vital Signs Temp 97.7 F 10/16/17 11:53 Pulse 79 10/16/17 11:53 Resp 19 10/16/17 11:53 BP 81/43 10/16/17 11:53 Pulse Ox 95 10/16/17 11:53 Intake & Output 10/15/17 10/16/17 10/16/17 18:59 06:59 18:59 Intake Total 1600 870 Output Total 900 701 Balance 700 169 Weight (lbs) 52.163 kg 55.792 kg Intake: Intake, IV Amount 1000 50 D5-0.45NS 1,000 ml @ 75 1000 mls/hr IV .[id number] [facility] Rx #:[id number] cefTRIAXone 1 gm In 50 Dextrose 5% 50 ml @ 100 mls/hr IV Q24H [facility] Rx#: [id number] Oral 0 Tube Feeding 600 720 Other 100 Output: Urine 900 700 Stool 1 Other: Stool Characteristics Soft Soft Weight Source Bedscale Bedscale Active Medications: Current Medications Acetaminophen (Tylenol) 650 mg PO Q4H PRN PRN Reason: Pain or Fever >101 Stop: 12/10/17 10:37 Last Admin: 10/15/17 21:05 Dose: 650 mg Amoxicillin (Amoxil) 1,000 mg PO BID [facility] Stop: 12/15/17 09:14 Last Admin: 10/16/17 10:29 Dose: 1,000 mg Ascorbic Acid (Vitamin C) 500 mg PO DAILY RADHA Stop: 12/10/17 13:59 Last Admin: 10/16/17 09:03 Dose: 500 mg Clarithromycin (Biaxin) 500 mg PO BID RADHA Stop: 12/15/17 09:14 Last Admin: 10/16/17 10:27 Dose: 500 mg Donepezil HCl (Aricept) 10 mg PO HS [facility] Stop: 12/10/17 20:59 Last Admin: 10/15/17 21:06 Dose: 10 mg Heparin Sodium (Porcine) (Heparin) 5,000 units SUBQ Q12HR RADHA Stop: 12/10/17 20:59 Last Admin: 10/16/17 09:05 Dose: 5,000 units Lactobacillus Rhamnosus (Culturelle 15b) 1 each PO DAILY [facility] Stop: 12/10/17 13:59 Last Admin: 10/16/17 09:03 Dose: 1 each Memantine (Namenda) 10 mg PO DAILY [facility] Stop: 12/10/17 13:59 Last Admin: 10/16/17 09:04 Dose: 10 mg Miscellaneous (Vte Chemical Prophylaxis Screen/ Admission) 1 ea PRN PRN PRN Reason: PROTOCOL Stop: 12/10/17 11:57 Miscellaneous (Probiotic Screen) 1 ea PRN PRN PRN Reason: PROTOCOL Stop: 12/10/17 12:06 Pantoprazole Sodium (Protonix) 40 mg PO BID [facility] Stop: 12/15/17 16:59 General: no acute distress, well developed, well nourished HEENT: atraumatic, normocephalic, PERRLA, EOMI Neck: supple, no thyromegaly Cardiovascular: S1S2, regular Lungs: clear to auscultation bilaterally, clear to percussion Abdomen: soft, other ( G tube.), no tender, no distended, no mass, no hepatomegaly Infectious Disease Assmt/Plan - Assessment Assessment: 1. Leukocytosis. improved. 2. UTI. 3. Severe dementia - Plan Plan: CPM. Continue Rocephin for 5 more days. Nutritional Asmnt/Malnutr-PDOC - Dietary Evaluation Malnutrition Findings (Please click <Entered> for more info): Nutritional Asmnt/Malnutrition Start: 10/11/17 13: 56 Text: Status: Complete Freq: Protocol: Document 10/11/17 13:56 ALFONZO (Rec: 10/11/17 14:14 [email or web address] Nutritional Asmnt/Malnutrition Patient General Information Nutritional Screening High Risk Diagnosis UTi, Sepsis Pertinent Medical Hx/Surgical Hx dementia, anxiety Subjective Information Pt seen sleeping at first attempt of visit, taking ultrasaound at second attempt of visit. Spoke with DRUG AND ALCOHOL COUNSELOR, pt had half of cream of wheat and healthy shake at breakfast, refused to eat at lunch. Current Diet Order/ Nutrition Support pureed, honey thickened liquids Pertinent Medications vit C, D5-045ns, culturelle Pertinent Labs 10/11 cl 113, glucose 181 6/5 K 3.4, glucose 183 Nutritional Hx/Data Height 1.52 m Height (Calculated Centimeters) 152.4 Current Weight (lbs) 47.627 kg Weight (Calculated Kilograms) 47.6 Weight (Calculated Grams) 69373.2 [place] Body Weight 100 % [place] Body Weight 105 Body Mass Index (BMI) 20.5 Weight Status Approriate GI Symptoms GI Symptoms None Last BM not indicated Difficult in: None Usual diet at home poor PO intake x 1 day before admitted Skin Integrity/Comment: old scar wound to sascrococcyx Current %PO Negligible < 25% Estimated Nutritional Goals BEE in Kcals: Using Current wt Calories/Kcals/Kg 27-32 Kcals Calculated 3332-6466 Protein: Using Current wt Protein g/k.2 Protein Calculated 57 Fluid: ml 1296-1536ml (1ml/kcal) Nutritional Problem 2. Problem Problem altered nutrition related labs Etiology endocrine dysfunction Signs/Symptoms: glucose 181-183 1. Problem Problem inadequate food intake Etiology possible poor appetite or mental status Signs/Symptoms: PO intake <25% Malnutrition Alert Is there a minimum of two criteria No selected? Query Text:Check all the applicable criteria. A minimum of two criteria are recommended for diagnosis of either severe or non-severe malnutrition. Malnutrition Related to Morbid Obesity Malnutrition related to morbid obesity No Intervention/Recommendation Comments 1. Continue with current diet as ordered. Encourage pt to eat and assist pt with all meals. MD to consider appetite stimulant. 2. Monitor glucose, PO intake. Consider adding supplements if PO continue <25% for 3 days . 3. Monitor PO intake, wt, labs and skin integrity 4. F/U as high risk in 2-3 days, 10/13-10/14 Expected Outcomes/Goals Expected Outcomes/Goals 1. PO intake to meet at least 75% of nutritional needs. 2. Wt stability, skin to remain intact, labs to approach WNL.
[2017-10-16] MEDS ORDERED: Pantoprazole 40 mg EC Tab PO SCH (17:00)
--- NOTE | 2017-10-16 19:56 | Discharge Summary ---
DATE OF DISCHARGE: 10/16/2017 IDENTIFICATION: An 82-year-old female. DATE OF DISCHARGE: 10/16/2017. PRINCIPAL DIAGNOSES: 1. Helicobacter pylori induced gastric ulcer. 2. Escherichia coli complicated urinary tract infection. 3. Severe dysphagia required gastrostomy tube placement. 4. Alzheimer dementia. 5. Degenerative joint disease. 6. Gout. 7. Peripheral vascular disease. 8. Osteoporosis. 9. Normocytic normochromic anemia secondary to anemia of inflammation. 10. Require total care. BRIEF STATEMENT FOR THE REASON FOR ADMISSION: [facility] 82[facility] resident of [facility] sent to [facility] Room for evaluation of unable to take p.o. by mouth with increasing lethargy. The patient was evaluated and subsequently admitted to the hospital for further treatment. Please refer to my dictated H and P for further information. HOSPITAL COURSE: The patient was admitted to med/surg floor. IV fluid, IV antibiotic was ordered. The patient did have a renal ultrasound to rule out pyelonephritis, which was unremarkable. Infectious Disease consultation was requested. The patient's urine culture did grow E. coli. The patient was noted to have severe dysphagia, which required Gastroenterology consultation. The patient underwent upper endoscopy, which revealed the patient had evidence of gastric ulcer. Biopsy came out positive for H. pylori. The patient was also started on tube feeding. The patient was started to improve. It was noted by nursing staff that the patient became more alert and awake and trying to communicate, but that was her baseline. The patient did have electrolyte imbalance, which was treated as well. The patient has been [facility] to [facility] today in stable condition with the prescription for H. pylori induced gastric ulcer with double antibiotic with Biaxin and amoxicillin along with the higher doses of proton pump inhibitor. The patient will be receiving other medication as patient was receiving. The patient will be followed by primary care physicians in a [facility] as scheduled. JOB# [id number]
--- NOTE | 2017-10-17 03:06 | Progress Notes ---
DATE: 10/16/2017 IDENTIFICATION: An 82-year-old female. SUBJECTIVE: The patient seen and examined. The patient is lying in the bed. The patient is more alert, awake. No new event has been reported. The patient is tolerating tube feeding fairly well. PHYSICAL EXAMINATION: VITAL SIGNS: Temperature 97.1, pulse is 75, respiratory rate 18, blood pressure 100/54. HEENT: Multiple absent teeth noted. NECK: Supple, no JVD. HEART: Regular. CHEST: Equal in expansion, no expiratory wheezing. ABDOMEN: Soft. Gastrostomy tube noted. Bowel sounds are present. No palpable mass. EXTREMITIES: No edema. CLINICAL IMPRESSION: 1. Helicobacter pylori induced gastric ulcers. 2. Escherichia coli urinary tract infection. 3. Alzheimer dementia. 4. Degenerative joint disease. 5. Osteoporosis. 6. Failure to thrive. 7. Status post gastrostomy tube placement with severe dysphagia. 8. Gout. 9. Peripheral vascular disease. PLAN: [facility] with amoxicillin, Prevacid and Protonix to be continued for 2 weeks. Continue tube feeding as prescribed. Discontinue IV fluid, antibiotic as directed. Continue other medicine as prescribed. Follow up with her agriculture professor as scheduled. JOB# [id number]
== END 2017-10-16 20:16 | DRG 872 ==
LOC: ER 19:59 → MSI 22:20
PROVIDERS: ADMIT Internal Medicine; ATTEND Internal Medicine
PROC: 0DB68ZX Excision of Stomach, Via Natural or Artificial Opening Endoscopic, Diagnostic (ICD-10-PCS; principal; 2017-10-13)
PROC: 0DH68UZ Insertion of Feeding Device into Stomach, Via Natural or Artificial Opening Endoscopic (ICD-10-PCS; 2017-10-13)
DX: A41.9 Sepsis, unspecified organism (principal); N39.0 Urinary tract infection, site not specified; E46 Unspecified protein-calorie malnutrition; E44.1 Mild protein-calorie malnutrition; G30.9 Alzheimer's disease, unspecified; F02.80 Dementia in other diseases classified elsewhere, unspecified severity, without behavioral disturbance, psychotic disturbance, mood disturbance, and anxiety; M19.90 Unspecified osteoarthritis, unspecified site; M81.0 Age-related osteoporosis without current pathological fracture; E86.0 Dehydration; R31.9 Hematuria, unspecified; R62.7 Adult failure to thrive; R73.9 Hyperglycemia, unspecified; R13.10 Dysphagia, unspecified; D64.9 Anemia, unspecified; B96.20 Unspecified Escherichia coli [E. coli] as the cause of diseases classified elsewhere; K25.9 Gastric ulcer, unspecified as acute or chronic, without hemorrhage or perforation; E87.6 Hypokalemia; M10.9 Gout, unspecified; I73.9 Peripheral vascular disease, unspecified; I95.9 Hypotension, unspecified; Z68.24 Body mass index [BMI] 24.0-24.9, adult; Z91.81 History of falling
CPT/HCPCS: 36415-UA; 71045-TC; 76770-TC; 80048-TC; 80053-TC; 80170-TC; 81001-TC; 83036-90; 83605; 83735-TC; 83880-TC; 84484-TC; 85007-TC; 85025-TC; 85027-TC; 85610-TC; 87086-90; 87338-TC; 93005; 94760; J0696; J1580; J1644; J2704; J3480; J7030; J7040; Z7506; Z7610